=== PATIENT | female | born 1955 | race Caucasian/White ===

== ENCOUNTER 2017-05-06 08:07 | Observation (INO) | payer OTHER ==
[2017-05-06] VITALS (20 sets, daily range): BP systolic 117–159; BP diastolic 62–97; PULSE 62–74; RESP 15–19; Ht 160 cm; Wt 80.0 kg
[~2017-05-06] VITALS: Ht 160 cm; Wt 80.0 kg
[~2017-05-06 08:07] MED LIST: SEVOFLURANE 15 MIN ONE
[2017-05-06 09:30] LABS: BASOPHILS % 0.5 % (0.0-2.0); EOSINOPHILS # 0.2 10^3/ul (0.0-0.5); EOSINOPHILS % 2.9 % (0.0-7.0); HEMATOCRIT 41.2 % (37.0-47.0); HEMOGLOBIN 13.2 g/dl (12.0-16.0); LYMPHOCYTES # 2.4 10^3/ul (0.8-2.9); LYMPHOCYTES % 32.9 % (15.0-51.0); MEAN CORPUSCULAR HEMOGLOBIN 29.7 pg (29.0-33.0); MEAN CORPUSCULAR VOLUME 92.8 fl (82.0-101.0); MEAN PLATELET VOLUME 9.3 fl (7.4-10.4); MONOCYTE # 0.5 10^3/ul (0.3-0.9); MONOCYTES % 6.7 % (0.0-11.0); NEUTROPHILS % 56.7 % (39.0-77.0); PLATELET COUNT 332 10^3/UL (140-415); RED BLOOD COUNT 4.44 10^6/ul (4.20-5.40); WHITE BLOOD COUNT 7.3 10^3/ul (4.8-10.8)
--- NOTE | 2017-05-06 09:44 | RADRPT ---
PROCEDURE: XR Chest. CLINICAL INDICATION: Preoperative TECHNIQUE: Single frontal view of the chest was obtained COMPARISON: None FINDINGS: The heart and mediastinum are within normal limits. There is mild elevation of the right diaphragm. The lungs are clear. There is no pleural effusion or pneumothorax. RPTAT: AA IMPRESSION: No acute disease. .Bobby Da Silva MD, MD Date Time Electronically viewed and signed by .Bobby Da Silva MD, on 05/06/2017 09:44 .S/
[2017-05-06 09:51] LABS: INR 0.82; PROTIME 11.3 Sec (12.2-14.2); PT RATIO 0.9
[2017-05-06 09:52] LABS: PARTIAL THROMBOPLASTIN TIME 29.6 Sec (25.0-35.0)
[2017-05-06] MEDS ORDERED: CEFAZOLIN 2 GM/50 ML (PMX) 50 ML IVPB SCH (10:00)
[2017-05-06] MEDS ORDERED: SOD CHLORIDE 0.9% 1,000 ML IV SCH (10:00)
[2017-05-06 10:11] LABS: ALBUMIN 4.1 g/dl (3.3-4.9); ALBUMIN/GLOBULIN RATIO 1.24; BILIRUBIN,INDIRECT 0.2 mg/dl (0-1.1); BILIRUBIN,TOTAL 0.2 mg/dl (0.2-1.3); TOTAL PROTEIN 7.4 g/dl (6.1-8.1)
[2017-05-06 10:19] LABS: CALCIUM 9.3 mg/dl (8.4-10.2); CREATININE 0.66 mg/dl (0.44-1.00); POTASSIUM 3.8 mmol/L (3.5-5.1)
[2017-05-06] MEDS ORDERED: METOCLOPRAMIDE 10 MG INJ ONE (10:53)
[2017-05-06] MEDS ORDERED: SUCCINYLCHOLINE CHLORIDE 100 MG/5 ML SYG IV ONE (10:53)
[2017-05-06] MEDS ORDERED: FENTAnyl 50 MCG/ML VIAL ONE (10:53)
[2017-05-06] MEDS ORDERED: ONDANSETRON 4 MG INJ ONE (10:53)
[2017-05-06] MEDS ORDERED: ROCURONIUM 50 MG INJ ONE (10:53)
[2017-05-06] MEDS ORDERED: CEFAZOLIN 1 GM INJ ONE (10:53)
[2017-05-06] MEDS ORDERED: PROPOFOL 20 ML ONE (10:53)
[2017-05-06] MEDS ORDERED: MEPERIDINE 25 MG INJ IV PRN (12:00)
[2017-05-06] MEDS ORDERED: HYDROmorphONE (0.2 MG/ML) 10ML SYG IV PRN ×3 (12:00)
[2017-05-06] MEDS ORDERED: FENTAnyl 50 MCG/ML VIAL IV PRN ×2 (12:00)
[2017-05-06] MEDS ORDERED: ONDANSETRON 4 MG INJ IV PRN ×2 (12:00→13:00)
--- NOTE | 2017-05-06 12:39 | SIPON ---
Date/Time of Note Date/Time of Note DATE: 05/06/17 TIME: 12:36 Operative Report Preoperative Diagnosis Invasive cancer left breast Postoperative Diagnosis Same Operation/Procedure Performed Left modified radical mastectomy Surgeon: THOMAS MORELOS MD wellness assistant: AUGUST ZAVALETA MD Anesthesia Type: general Estimated Blood Loss: 10 - 50 ml's Transfusion Required: no Specimens Left breast and axillary contents Grafts/Implants: none Complications: no THOMAS MORELOS MD May 06, 2017 12:39
--- NOTE | 2017-05-06 12:56 | OPR ---
DATE OF OPERATION: 05/06/2017 PREOPERATIVE DIAGNOSIS: Invasive cancer, left breast. POSTOPERATIVE DIAGNOSIS: Invasive cancer, left breast. OPERATION PERFORMED: Left modified radical mastectomy. ANESTHESIA: General. ANESTHESIOLOGIST: Dr. Nikko Carreno. SURGEON: Dr. Diaz. RIDING INSTRUCTOR: Dr. Ruiz. INDICATIONS FOR PROCEDURE: Patient is a 62-year-old female, who underwent screening mammography, was found to have suspicious lesion in her left breast. Subsequent biopsy revealed a moderately differentiated invasive cancer. However, the patient had had a pertinent past medical history of a previous left breast cancer treated in 2004 with both chemotherapy and radiation. Therefore, she was not a candidate for breast conservation. She was counseled as to the need for modified radical mastectomy. She consented and was scheduled for surgery. OPERATIVE PROCEDURE: Patient was brought to the operating theater, placed under general endotracheal tube anesthesia. The left breast and axillary region were prepped and draped in the usual sterile fashion. A planned elliptical incision was made widely around the nipple-areolar complex, including a significant portion of the skin overlying the breast. The incision was carried out with 15 blade scalpel. Subcutaneous tissue was dissected with cautery. Allis-Hamilton clamps were then used to elevate the skin edges and sequential skin flaps were created using cautery, first superiorly to the clavicle, then medially to the sternal border, inferiorly to the inframammary fold and then laterally until the latissimus dorsi muscle was identified throughout its course. Mastectomy then took place from medial to lateral using cautery at the border of the pectoralis major muscle. The pectoralis minor muscle was identified. The clavipectoral fascia was incised. There was significant scar tissue consistent with previous surgery. With blunt dissection along the chest wall, the long thoracic nerve was kept out of harm's way. More superiorly, the axillary vein and thoracodorsal neurovascular bundles were kept out of harm's way. Node-bearing tissue between the 2 nerves was then harvested using the LigaSure device. Final connective tissue attachments to the latissimus dorsi muscle were then transected with cautery. Specimen was removed, oriented, and sent for permanent pathologic analysis. The wound was irrigated. Minimal bleeding was controlled with cautery. Two #10 flat Alejandro-Suazo drains were then brought through the left mid axillary line. One was cut to size and laid within the axilla. The other was cut to size and laid over the pectorals major muscle. Both drains were secured in place with 2- 0 nylon suture in the standard fashion. The skin incision was then reapproximated with skin veda. The patient tolerated procedure well. The estimated blood loss was approximately 40 mL. There were no complications and the patient was transported in stable condition to the recovery room. Dictated By: Ernie Diaz MD /nam/ho /Document#: [id number]
[2017-05-06] MEDS ORDERED: ACETAMINOPHEN 1000MG/100ML IV 100 ML IVPB PRN (13:00)
[2017-05-06] MEDS ORDERED: morphine 2 MG INJ IV PRN (13:00)
[2017-05-06] MEDS: D5W-0.45 NACL + KCL 20 MEQ 1,000 ML IV SCH (15:29)
[2017-05-06] MEDS ORDERED: OXYCODONE/ACETAMINOPHEN (5/325) TAB PO PRN (18:00)
[2017-05-06] MEDS ORDERED: ACETAMINOPHEN 500 MG TAB PO PRN (18:30)
--- NOTE | 2017-05-06 20:26 | HP ---
DATE OF ADMISSION: 05/06/2017 CHIEF COMPLAINT: The patient is a 64-year-old female with history of left-sided breast cancer, status post lumpectomy, chemotherapy, and radiation therapy that was back in 2004. The patient subsequently recently underwent screening mammography and was found to have suspicious lesion of left breast and subsequent biopsy revealed moderately differentiated invasive cancer. The patient was brought in the hospital today and underwent left modified radical mastectomy. The patient does have postoperative significant postoperative pain and is being admitted for further evaluation. The patient denies history of shortness of breath, no history of leg edema, no history of abdominal pain, no history of fever or chills, no history of headache, dizziness, syncope, no history of dysuria or hematuria. REVIEW OF SYSTEMS: The rest of the review of systems is unremarkable. PAST SURGICAL HISTORY: As stated above. ALLERGIES: NONE. SOCIAL HISTORY: No smoking. No alcohol. Patient's grandmother had ovarian cancer. MEDICATIONS: Prior to admission, none. PHYSICAL EXAMINATION: GENERAL: Patient is conscious, awake, alert. VITAL SIGNS: Temperature 98.8, pulse 68, respiration 18, blood pressure 149/73, O2 sat 97 on room air. HEENT: Normal. Oropharynx clear. NECK: Supple. No thyromegaly. CHEST: Fairly clear. CARDIOVASCULAR: Normal. No murmur. ABDOMEN: Soft, nontender. Bowel sounds present. EXTREMITIES: No leg edema. NEUROLOGIC: Patient is awake, alert, with no gross focal deficits. IMPRESSION: Recurrent left breast cancer with history of surgery in the past and also chemotherapy and radiation back in 2004 with recent recurrence, and now the patient underwent left modified radical mastectomy. PLAN: Patient admitted to medical floor. Patient started on clear liquid diet an gradually advance as tolerated. Patient will be given IV fluids and SCD for DVT prophylaxis. The patient will be started on Tylenol, Percocet and IV morphine for mild, moderate, and severe pain. If the patient continues to do well, she will be discharged home tomorrow. Plan of care discussed with the patient's family. Dictated By: Parish Kessler MD /nam/elo /Document#: [id number]
[2017-05-07 02:00] VITALS: BP 115/62; RESP 18
[2017-05-07] MEDS: D5W-0.45 NACL + KCL 20 MEQ 1,000 ML IV SCH ×3 (02:01→12:39)
[2017-05-07 06:00] VITALS: BP 112/82; PULSE 68; RESP 18
[2017-05-07 08:00] VITALS: BP 132/74; RESP 18
[2017-05-07 12:03] VITALS: BP 122/75; PULSE 74; RESP 16
[2017-05-07 14:34] VITALS: BP 111/63; RESP 16
[2017-05-07] MEDS ORDERED: ACET1TAB40 PO (16:58)
--- NOTE | 2017-05-07 22:10 | PN ---
DATE: 05/07/2017 SUBJECTIVE: No complaints. OBJECTIVE: VITAL SIGNS: Stable. No fever. GENERAL: No nausea, no vomiting. Two Alejandro-Suazo drains in place, drained totally 150 cc since operation. It is a serosanguineous fluid color. CHEST: The dressing around the chest wall is not too tight. The dressing is intact. ASSESSMENT: This is a 62-year-old female, who had cancer of the left breast, which was operated on with modified radical mastectomy with axillary dissection yesterday. This is the 2nd time that she is getting cancer in this breast. Postoperatively she has done fine, she is stable, the wound is clean, dressing is intact, Alejandro-Suazo is draining serosanguineous. PLAN: Patient is going to be discharged today with pain medication and the nurses are going to teach the patient how to take care of the WIN drains to record them. The patient to call Dr. Diaz' office on Wednesday for followup appointment. Dictated By: Tr Galindo MD /nam/elo /Document#: [id number] LUIGI
--- NOTE | 2017-05-08 07:24 | DS ---
Date/Time of Note Date/Time of Note DATE: 05/08/17 TIME: 07:23 Discharge Summary Admission/Discharge Info Admit Date/Time May 06, 2017 at 12:41 Discharge Date/Time May 07, 2017 at 17:40 Patient Condition: Stable Hx of Present Illness The patient is a 64-year-old female with history of left-sided breast cancer, status post lumpectomy, chemotherapy, and radiation therapy that was back in 2004. The patient subsequently recently underwent screening mammography and was found to have suspicious lesion of left breast and subsequent biopsy revealed moderately differentiated invasive cancer. The patient was brought in the hospital today and underwent left modified radical mastectomy. The patient does have postoperative significant postoperative pain and is being admitted for further evaluation. The patient denies history of shortness of breath, no history of leg edema, no history of abdominal pain, no history of fever or chills, no history of headache, dizziness, syncope, no history of dysuria or hematuria. Hospital Course Recurrent left breast cancer with history of surgery in the past and also chemotherapy and radiation back in 2004 with recent recurrence, and now the patient underwent left modified radical mastectomy. PLAN: Patient admitted to medical floor. Patient started on clear liquid diet an gradually advance as tolerated. Patient will be given IV fluids and SCD for DVT prophylaxis. The patient will be started on Tylenol, Percocet and IV morphine for mild, moderate, and severe pain. If the patient continues to do well, she will be discharged home tomorrow. Home Meds Active Scripts Acetaminophen with Codeine (Acetaminophen-Cod #3 Tablet) 1 Each Tablet, 1 TAB PO Q6H for PAIN, #20 TAB Prov:JAMES FERRER 05/07/17 Follow-up Plan f/up with Dr Diaz next week. Primary Care Provider [facility] JAMES FERRER May 08, 2017 07:24
--- NOTE | 2017-05-08 14:54 | RADRPT ---
Vent Rate: 66 bpm RR Interval: 0 msec [place] Interval: 230 msec QRS Duration: 86 msec QT Interval: 430 msec QTC Interval: 450 msec P-R-T [place]: 57 - -17 - 25 degrees Sinus rhythm with 1st degree AV block Otherwise normal ECG No previous tracing available for comparison Electronically Signed By: Yang De Leon [id number]
[2017-05-14] MEDS ORDERED: METOCLOPRAMIDE 10 MG INJ ONE (10:19)
[2017-05-14] MEDS ORDERED: PROPOFOL 20 ML ONE (10:19)
[2017-05-14] MEDS ORDERED: ONDANSETRON 4 MG INJ ONE (10:19)
[2017-05-14] MEDS ORDERED: FENTAnyl 50 MCG/ML VIAL ONE (10:19)
[2017-05-14] MEDS ORDERED: CEFAZOLIN 1 GM INJ ONE (10:38)
[2017-05-14] MEDS ORDERED: KETOROLAC 30 MG INJ ONE (11:37)
== END 2017-05-07 17:40 | disposition home or self-care (01) ==
LOC: SDS 08:07 → PP2 12:41 → SDS 20:34
PROVIDERS: ADMIT Surgery Surgical Oncology; ATTEND Surgery Surgical Oncology
DX: C50.912 Malignant neoplasm of unspecified site of left female breast (principal); Z17.0 Estrogen receptor positive status [ER+]; Z92.3 Personal history of irradiation; Z92.21 Personal history of antineoplastic chemotherapy
CPT/HCPCS: 19307; 71010; 80053; 85025; 85610; 85730; 88307; 93005; J0690; J2405; J2765; J3010; J3480; Z7500; Z7512; Z7610; G0378; J7999

== ENCOUNTER 2017-05-14 07:18 | Day surgery (SDC) | payer OTHER ==
[2017-05-14] VITALS (11 sets, daily range): BP systolic 107–118; BP diastolic 59–68; PULSE 68–85; RESP 12–18; Ht 157.5 cm; Wt 79.0 kg
[~2017-05-14] VITALS: Ht 157.5 cm; Wt 79.0 kg
[~2017-05-14 07:18] MED LIST changes: +ACET1TAB40 PO; -SEVOFLURANE 15 MIN ONE
--- NOTE | 2017-05-14 08:54 | ERA ---
ER Documentation Chief Complaint Date/Time DATE: 05/14/17 TIME: 08:52 Chief Complaint Patient here for a wound check lt breast HPI This is a 62-year-old female who is status post left breast mastectomy by Dr. Wagner who had her sutures removed yesterday presents with wound dehiscence. The patient states that she woke up this morning with an open wound to her left chest wall. She denies any pain, fevers or chills. She denies any drainage or discharge. She is Citizen [place]-speaking and an jig worker was used. ROS All systems reviewed and are negative except as per history of present illness. Medications Home Meds Active Scripts Acetaminophen with Codeine (Acetaminophen-Cod #3 Tablet) 1 Each Tablet, 1 TAB PO Q6H for PAIN, #20 TAB Prov:NABILJAMES 05/07/17 Allergies Allergies: Coded Allergies: No Known Allergy (Unverified , 05/14/17) PMhx/Soc History of Surgery: Yes (LEFT BREAST SX FOR CA,RT LUNG SX,MOUTH SX,HODA,C- SECTIONX2) Anesthesia Reaction: No Hx Neurological Disorder: No Hx Respiratory Disorders: No Hx Cardiac Disorders: No Hx Psychiatric Problems: No Hx Miscellaneous Medical Probl: No Hx Alcohol Use: No Hx Substance Use: No Hx Tobacco Use: No Smoking Status: Never smoker FmHx Family History: No diabetes Physical Exam Vitals Vital Signs Date Time Temp Pulse Resp B/P Pulse Ox O2 Delivery O2 Flow Rate FiO2 05/14/17 07:20 98.3 79 20 129/68 98 Physical Exam General: Well developed, well nourished, no acute distress Head: Normocephalic, atraumatic. Eyes: Pupils equally reactive, EOM intact ENT: Moist mucous membranes Neck: Supple, no lymphadenopathy Respiratory: Lungs clear bilaterally, no distress Cardiovascular: RRR, no murmurs, rubs, or gallops Abdominal: Soft, non-tender, non-distended, no peritoneal signs : Deferred MSK: No edema, no unilateral swelling, 5/5 strength Neurologic: Alert and oriented, moving all extremities, normal speech, no focal weakness, no cerebellar signs Skin: The left chest wall wound is open and gaping approximately 8 cm to the more medial aspect of the surgical wound. Subcutaneous tissue is visualized without evidence of drainage or discharge, no foreign body. Psych: Normal mood Procedures/MDM The patient has clinical signs and symptoms consistent with left chest wall wound dehiscence. The patient has no evidence of infection no evidence of foreign body. She is resting comfortably. I spoke to Dr. Diaz. He will take the patient to the operating room for washout and closure. He requested IV, no labs required. The patient was informed using a ferry operator. A consent was prepped for Dr. Diaz but not signed, he will formally consent prior to procedure. Departure Diagnosis: Primary Impression: Wound dehiscence Condition: Stable [place] MD May 14, 2017 08:54
[2017-05-14] MEDS ORDERED: POLYMYXIN/BACITRACIN 1L IRRIG ONE (10:48)
[2017-05-14] MEDS ORDERED: LABETALOL HCL 20MG INJ IV PRN (11:00)
[2017-05-14] MEDS ORDERED: hydrALAzine 20 MG INJ IV PRN (11:00)
[2017-05-14] MEDS ORDERED: MEPERIDINE 25 MG INJ IV PRN (11:00)
[2017-05-14] MEDS ORDERED: FENTAnyl 50 MCG/ML VIAL IV PRN ×2 (11:00)
[2017-05-14] MEDS ORDERED: VANCOMYCIN 1 GM (PMX) 250 ML ONE (11:09)
--- NOTE | 2017-05-14 12:22 | OPR ---
DATE OF OPERATION: 05/14/2017 PREOPERATIVE DIAGNOSIS: Left chest wall wound dehiscence. POSTOPERATIVE DIAGNOSIS: Left chest wall wound dehiscence. PROCEDURES: Washout and repair of left chest wall wound dehiscence. ANESTHESIA: General. ANESTHESIOLOGIST: Nelida Nick M.D. SURGEON: Ernie Diaz MD WOMEN'S SOCCER COACH: Shelley Desouza MD INDICATIONS FOR PROCEDURE: The patient is a 62-year-old female, who I had previously treated for recurrent left breast cancer with left modified radical mastectomy. She was doing well and had her drains and veda removed. She stated that when she was sleeping and rolled over in her bed. She felt a tearing of her skin. She presented to the emergency room with findings consistent with wound dehiscence. She was counseled as to the need of for washout of the wound and reapproximation. She consented and was scheduled for surgery. OPERATIVE PROCEDURE: The patient was brought to the operating theater, placed under general anesthesia. The left anterior thorax was prepped and draped in usual sterile fashion. The skin edges of the dehiscence were then elevated and the wound cavity was explored to ensure there was no underlying abscess. It was then copiously irrigated with both Betadine and hydrogen peroxide. Decision was made to replace a number 10-Thai Alejandro-Suazo drain and was brought through the left mid axillary line, cut to size and laid within the wound cavity. It was secured in place with 2-0 nylon suture in the standard fashion. The skin was then freshened by debriding some of what appeared to be non viable tissue and then the skin was reapproximated with 2- 0 nylon sutures in vertical mattress fashion. The patient tolerated procedure well. ESTIMATED BLOOD LOSS: 10 mL. COMPLICATIONS: There were no complications. DISPOSITION: The patient was transported in stable condition to the recovery room. Dictated By: Ernie Diaz MD /nam/jac /Document#: [id number]
== END 2017-05-14 13:25 | disposition home or self-care (01) ==
LOC: FTE 07:18 → SDS 09:49
PROVIDERS: ATTEND Surgery Surgical Oncology
DX: T81.30XA Disruption of wound, unspecified, initial encounter (principal); Y83.8 Other surgical procedures as the cause of abnormal reaction of the patient, or of later complication, without mention of misadventure at the time of the procedure; Y92.89 Other specified places as the place of occurrence of the external cause
CPT/HCPCS: 13160; J0690; J1885; J2405; J2765; J3010; J3370; Z7502; Z7512; Z7610

== ENCOUNTER 2017-06-03 11:47 | Day surgery (SDC) | payer OTHER ==
[2017-06-03] VITALS (7 sets, daily range): BP systolic 101–122; BP diastolic 62–73; PULSE 56–66; RESP 11–20; Ht 160 cm; Wt 81.2 kg
[~2017-06-03] VITALS: Ht 160 cm; Wt 81.2 kg
[~2017-06-03 11:47] MED LIST changes: +ATROPINE 1 MG/10 ML SYRINGE IV PRN; +DIPHENHYDRAMINE 50 MG INJ IV PRN; +EPHEDrine SULFATE 50 MG/5 ML SYG IV PRN; +FENTAnyl 50 MCG/ML VIAL IV PRN; +GLYCOPYRROLATE 0.4 MG INJ ONE; +HYDROmorphONE (0.2 MG/ML) 10ML SYG IV PRN; +LABETALOL HCL 20MG INJ IV PRN; +MEPERIDINE 25 MG INJ IV PRN; +MIDAZOLAM 1 MG/ML 2 ML INJ IV PRN; +NEOSTIGMINE 3 MG/3 ML SYRINGE ONE; +ONDANSETRON 4 MG INJ IV PRN; +OXYCODONE/ACETAMINOPHEN (5/325) TAB PO PRN; +ROCURONIUM 50 MG INJ ONE; +hydrALAzine 20 MG INJ IV PRN; +morphine (1 MG/ML) 10ML SYRINGE IV PRN
[2017-06-03 13:27] LABS: BASOPHILS % 0.4 % (0.0-2.0); EOSINOPHILS # 0.2 10^3/ul (0.0-0.5); EOSINOPHILS % 2.9 % (0.0-7.0); HEMATOCRIT 38.5 % (37.0-47.0); HEMOGLOBIN 12.3 g/dl (12.0-16.0); LYMPHOCYTES # 2.5 10^3/ul (0.8-2.9); LYMPHOCYTES % 33.7 % (15.0-51.0); MEAN CORPUSCULAR HEMOGLOBIN 29.5 pg (29.0-33.0); MEAN CORPUSCULAR HGB CONC 31.9 g/dl (32.0-37.0); MEAN CORPUSCULAR VOLUME 92.3 fl (82.0-101.0); MEAN PLATELET VOLUME 9.1 fl (7.4-10.4); MONOCYTE # 0.6 10^3/ul (0.3-0.9); MONOCYTES % 7.7 % (0.0-11.0); NEUTROPHIL # 4.2 10^3/ul (1.6-7.5); PLATELET COUNT 326 10^3/UL (140-415); RED BLOOD COUNT 4.17 10^6/ul (4.20-5.40); RED CELL DISTRIBUTION WIDTH 12.9 % (11.5-14.5); WHITE BLOOD COUNT 7.5 10^3/ul (4.8-10.8)
[2017-06-03] MEDS ORDERED: CEFAZOLIN 2 GM/50 ML (PMX) 50 ML IVPB SCH (13:30)
[2017-06-03] MEDS ORDERED: SOD CHLORIDE 0.9% 1,000 ML IV SCH (13:30)
--- NOTE | 2017-06-03 13:43 | RADRPT ---
PROCEDURE: XR Chest. CLINICAL INDICATION: Preop TECHNIQUE: Single frontal view of the chest was obtained COMPARISON: None FINDINGS: No pleural effusion or pneumothorax. No consolidation. Top normal cardiomediastinal silhouette. Mildly elevated right hemidiaphragm. No acute osseous abnormality. Surgical clips project over the left axilla. IMPRESSION: No acute cardiopulmonary disease. RPTAT: EE Tony Godinez Physician Date Time Electronically viewed and signed by Tony Godinez Physician on 06/03/2017 13:42 /
[2017-06-03 13:50] LABS: INR 0.86; PROTIME 11.7 Sec (12.2-14.2); PT RATIO 0.9
[2017-06-03 13:51] LABS: PARTIAL THROMBOPLASTIN TIME 29.5 Sec (25.0-35.0)
[2017-06-03 13:54] LABS: ALBUMIN 3.8 g/dl (3.3-4.9); ALBUMIN/GLOBULIN RATIO 1.18; BILIRUBIN,INDIRECT 0.3 mg/dl (0-1.1); BILIRUBIN,TOTAL 0.3 mg/dl (0.2-1.3)
[2017-06-03 13:56] LABS: CALCIUM 8.8 mg/dl (8.4-10.2); CREATININE 0.65 mg/dl (0.44-1.00)
[2017-06-03] MEDS ORDERED: FENTAnyl 50 MCG/ML VIAL ONE (15:39)
[2017-06-03] MEDS ORDERED: PROPOFOL 20 ML ONE (15:40)
[2017-06-03] MEDS ORDERED: LIDOCAINE 100 MG SYRINGE ONE (15:40)
[2017-06-03] MEDS ORDERED: CEFAZOLIN 1 GM INJ ONE (15:52)
--- NOTE | 2017-06-04 16:33 | RADRPT ---
Vent Rate: 61 bpm RR Interval: 0 msec [place] Interval: 238 msec QRS Duration: 84 msec QT Interval: 428 msec QTC Interval: 430 msec P-R-T [place]: 55 - -2 - 36 degrees Sinus rhythm with 1st degree AV block Otherwise normal ECG Electronically Signed By: Cody Olmstead [id number]
--- NOTE | 2017-06-04 18:12 | OPR ---
DATE OF OPERATION: 06/03/2017 PREOPERATIVE DIAGNOSIS: Left chest wall seroma. POSTOPERATIVE DIAGNOSIS: Left chest wall seroma. OPERATION PERFORMED: Incision and drainage of left chest wall seroma. ANESTHESIA: General. ANESTHESIOLOGIST: Dr. Mejia. SURGEON: Ernie Diaz MD GANG KNIFE FISH CHOPPER: None. INDICATIONS FOR PROCEDURE: Patient is a pleasant, approximately 62-year-old female, who I treated for left breast cancer. She developed a large seroma several weeks after her surgery. It was not resolving and appeared to be possibly becoming infected, therefore, she was counseled as to the benefit of the open incision and drainage. She consented and was scheduled for surgery. OPERATIVE PROCEDURE: Patient was brought to the operating theater, placed under general anesthesia. The left chest wall was prepped and draped in usual sterile fashion. Approximately 3 cm incision was made laterally over the region where the seroma had accumulated. Subcutaneous tissue was dissected with cautery. The seroma cavity was entered and at least 150 mL of clear seroma fluid were evacuated with suction. Minimal bleeding was controlled with cautery. A 10 flat Alejandro-Suazo drain was then brought through the incision and laid within the wound cavity. It was secured in place with 2-0 nylon sutures in the standard fashion and a sterile dressing was applied. Patient tolerated the procedure well. Estimated blood loss 10 cc. There were no complications. The patient was transported in stable condition to the recovery room. Dictated By: Ernie Diaz MD /nam/elo /Document#: [id number]
== END 2017-06-03 18:15 | disposition home or self-care (01) ==
LOC: SUR 11:47 → SDS 11:47 → SUR 18:15
PROVIDERS: ATTEND Surgery Surgical Oncology
DX: L76.34 Postprocedural seroma of skin and subcutaneous tissue following other procedure (principal); Y83.8 Other surgical procedures as the cause of abnormal reaction of the patient, or of later complication, without mention of misadventure at the time of the procedure; Z85.3 Personal history of malignant neoplasm of breast; I10 Essential (primary) hypertension; E11.9 Type 2 diabetes mellitus without complications; F32.9 Major depressive disorder, single episode, unspecified
CPT/HCPCS: 10140; 71010; 80053; 85025; 85610; 85730; 93005; J0690; J2710; J3010; Z7512; Z7610; J2001

== ENCOUNTER 2017-08-16 07:53 | Inpatient (IN) | payer OTHER ==
[2017-08-16] VITALS (26 sets, daily range): BP systolic 119–161; BP diastolic 66–90; PULSE 50–97; RESP 12–20; Ht 160 cm; Wt 83.3 kg
[~2017-08-16] VITALS: Ht 160 cm; Wt 83.3 kg
[~2017-08-16 07:53] MED LIST changes: -ACET1TAB40 PO; -ATROPINE 1 MG/10 ML SYRINGE IV PRN; -DIPHENHYDRAMINE 50 MG INJ IV PRN; -EPHEDrine SULFATE 50 MG/5 ML SYG IV PRN; -FENTAnyl 50 MCG/ML VIAL IV PRN; -GLYCOPYRROLATE 0.4 MG INJ ONE; -HYDROmorphONE (0.2 MG/ML) 10ML SYG IV PRN; -LABETALOL HCL 20MG INJ IV PRN; +LIDOCAINE 2% (SDV) 5 ML INJ ONE; -MEPERIDINE 25 MG INJ IV PRN; -MIDAZOLAM 1 MG/ML 2 ML INJ IV PRN; -NEOSTIGMINE 3 MG/3 ML SYRINGE ONE; -ONDANSETRON 4 MG INJ IV PRN; -OXYCODONE/ACETAMINOPHEN (5/325) TAB PO PRN; -ROCURONIUM 50 MG INJ ONE; -hydrALAzine 20 MG INJ IV PRN; -morphine (1 MG/ML) 10ML SYRINGE IV PRN
--- NOTE | 2017-08-16 09:55 | RADRPT ---
PROCEDURE: XR Chest. CLINICAL INDICATION: Preoperative evaluation TECHNIQUE: XR CHEST AP PORTABLE COMPARISON: None available. FINDINGS: The lungs are clear. No focal opacification is seen. No pneumothorax or pleural effusion is seen. The cardiomediastinal silhouette is unremarkable. The osseous structures are grossly unremarkable. IMPRESSION: No evidence of acute cardiopulmonary disease. RPTAT: JJ .Jb Ellison MD, MD Date Time Electronically viewed and signed by .Jb Ellison MD, on 08/16/2017 09:55 .A/
[2017-08-16] MEDS ORDERED: FENTAnyl 50 MCG/ML VIAL ONE ×2 (10:17→12:13)
[2017-08-16 10:26] LABS: BASOPHIL # 0.1 10^3/ul (0.0-0.1); BASOPHILS % 0.7 % (0.0-2.0); EOSINOPHILS # 0.5 10^3/ul (0.0-0.5); EOSINOPHILS % 7.4 % (0.0-7.0); HEMATOCRIT 42.5 % (37.0-47.0); HEMOGLOBIN 13.9 g/dl (12.0-16.0); LYMPHOCYTES # 2.4 10^3/ul (0.8-2.9); LYMPHOCYTES % 34.4 % (15.0-51.0); MEAN CORPUSCULAR HEMOGLOBIN 29.7 pg (29.0-33.0); MEAN CORPUSCULAR HGB CONC 32.7 g/dl (32.0-37.0); MEAN CORPUSCULAR VOLUME 90.8 fl (82.0-101.0); MEAN PLATELET VOLUME 9.4 fl (7.4-10.4); MONOCYTE # 0.4 10^3/ul (0.3-0.9); MONOCYTES % 5.9 % (0.0-11.0); NEUTROPHIL # 3.6 10^3/ul (1.6-7.5); NEUTROPHILS % 51.3 % (39.0-77.0); PLATELET COUNT 365 10^3/UL (140-415); RED BLOOD COUNT 4.68 10^6/ul (4.20-5.40); WHITE BLOOD COUNT 7.1 10^3/ul (4.8-10.8)
[2017-08-16] MEDS ORDERED: DIPHENHYDRAMINE 50 MG INJ IV PRN (10:30)
[2017-08-16] MEDS ORDERED: MEPERIDINE 25 MG INJ IV PRN (10:30)
[2017-08-16] MEDS ORDERED: KETOROLAC 30 MG INJ IV PRN (10:30)
[2017-08-16] MEDS ORDERED: HYDROmorphONE (0.2 MG/ML) 10ML SYG IV PRN ×2 (10:30)
[2017-08-16] MEDS ORDERED: CEFAZOLIN 2 GM/50 ML (PMX) 50 ML IVPB ONE (10:30)
[2017-08-16] MEDS ORDERED: hydrALAzine 20 MG INJ IV PRN (10:30)
[2017-08-16] MEDS ORDERED: LABETALOL HCL 20MG INJ IV PRN (10:30)
[2017-08-16] MEDS ORDERED: MIDAZOLAM 1 MG/ML 2 ML INJ IV PRN (10:30)
[2017-08-16] MEDS ORDERED: SOD CHLORIDE 0.9% 1,000 ML IV ONE (10:30)
[2017-08-16] MEDS ORDERED: FENTAnyl 50 MCG/ML VIAL IV PRN ×3 (10:30)
[2017-08-16] MEDS ORDERED: ALBUTEROL 0.083% (NEB) 2.5 MG/3 ML AMP HHN PRN (10:30)
[2017-08-16] MEDS ORDERED: METOCLOPRAMIDE 10 MG INJ IV PRN (10:30)
[2017-08-16] MEDS ORDERED: EPHEDrine SULFATE 50 MG/5 ML SYG IV PRN (10:30)
[2017-08-16] MEDS ORDERED: OXYCODONE/ACETAMINOPHEN (5/325) TAB PO PRN ×2 (10:30)
[2017-08-16] MEDS ORDERED: ONDANSETRON 4 MG INJ IV PRN ×2 (10:30→12:30)
[2017-08-16 10:46] LABS: ALBUMIN 4.2 g/dl (3.3-4.9); ALBUMIN/GLOBULIN RATIO 1.2; BILIRUBIN,INDIRECT 0.3 mg/dl (0-1.1); BILIRUBIN,TOTAL 0.3 mg/dl (0.2-1.3); INR 0.81; PROTIME 11.2 Sec (11.9-14.9); PT RATIO 0.9; TOTAL PROTEIN 7.7 g/dl (6.1-8.1)
[2017-08-16 10:47] LABS: PARTIAL THROMBOPLASTIN TIME 30.3 Sec (25.0-35.0)
[2017-08-16 10:55] LABS: CALCIUM 9.7 mg/dl (8.4-10.2); CREATININE 0.7 mg/dl (0.44-1.00); POTASSIUM 4.5 mmol/L (3.5-5.1)
[2017-08-16] MEDS ORDERED: PHENYLephrine (100 MCG/ML) 5ML SYG ONE (11:35)
[2017-08-16] MEDS ORDERED: PROPOFOL 100 ML ONE (11:35)
[2017-08-16] MEDS ORDERED: ROCURONIUM 50 MG INJ ONE (11:36)
[2017-08-16] MEDS ORDERED: CEFAZOLIN 1 GM INJ ONE (11:38)
[2017-08-16] MEDS ORDERED: ACETAMINOPHEN 1000MG/100ML IV 100 ML ONE (11:38)
[2017-08-16] MEDS ORDERED: DEXAMETHASONE 4 MG/ML 1 ML INJ ONE (12:16)
[2017-08-16] MEDS ORDERED: ONDANSETRON 4 MG INJ ONE (12:17)
--- NOTE | 2017-08-16 12:17 | SIPON ---
Date/Time of Note Date/Time of Note DATE: 08/16/17 TIME: 12:16 Operative Report Preoperative Diagnosis History of left breast cancer need for right prophylactic mastectomy Postoperative Diagnosis Same Operation/Procedure Performed Right mastectomy Surgeon see signature line assistant clinical nurse manager Dr Galindo Anesthesia: general Estimated blood loss: 10 - 50 ml's Transfusion Required none Specimen Right breast Grafts/Implants none Complications none THOMAS MORELOS MD Aug 16, 2017 12:17
[2017-08-16] MEDS ORDERED: morphine 2 MG INJ IV PRN (12:30)
--- NOTE | 2017-08-16 12:59 | OPR ---
DATE OF OPERATION: 08/16/2017 PREOPERATIVE DIAGNOSIS: History of left breast cancer, need for right prophylactic mastectomy. POSTOPERATIVE DIAGNOSIS: History of left breast cancer, need for right prophylactic mastectomy. PROCEDURE: Right mastectomy. ANESTHESIA: General. ANESTHESIOLOGIST: Dr. Sutotn. SURGEON: Ernie Diaz MD MANAGER ECONOMIC: Dr. Tr Galindo. INDICATIONS FOR PROCEDURE: The patient is a 62-year-old female. She was diagnosed with breast canc er in 2004 on the left side. At that time, she underwent breast conservation surgery and radiation. She developed a recurrence approximately 6 months ago and I treated her for a recurrent left breas t cancer with left mastectomy. Subsequently, she developed significant back pain due to the asymmet ry as she had very large breasts. She also was concern over the risk for breast cancer on the right side. Therefore, she requested a right mastectomy. She consented and was scheduled for surgery. DESCRIPTION OF PROCEDURE: The patient was brought to the operating theater, placed under general an esthesia. The right breast and axillary region was prepped and draped in usual sterile fashion. Pl anned elliptical incision was demarcated with marking pen including the nipple areolar complex and a dditional skin overlying the breast. It was carried out with 15 blade scalpel. Subcutaneous tissue was dissected with cautery. The skin edges were then elevated with Allis Beryl clamps and skin fla ps were created using cautery in a sequential fashion, first superiorly to the clavicle, then medial ly to the sternal border, inferiorly to the inframammary fold and laterally until the latissimus aniya si muscle was identified throughout its course. Mastectomy then took place from medial to lateral u sing cautery. At the border of the pectoralis major muscle, the pectoralis minor muscle was identif ied. Additional tail of the breast was resected using cautery. Specimen was transected, oriented, and sent for permanent pathologic analysis. The wound was irrigated. Minimal bleeding was controll ed with cautery. Two #10 flat Alejandro-Suazo drains were then brought through the right mid axillary line, one was laid over the pectoralis major muscle, the other was cut to size and laid within the axilla. Both drains were secured in place with 2-0 nylon sutures in standard fashion. The skin was reapproximated with skin veda. The patient tolerated the procedure well. The estimated blood l oss was 50 mL. There were no complications and the patient was transported in stable condition to [facility] recovery room where circumferential compression dressing was applied. Dictated By: ERNIE RENNER/SAV Conf#: [id number] DID#: [id number]
[2017-08-16] MEDS: HYDROmorphONE (0.2 MG/ML) 10ML SYG IV PRN ×2 (13:06→13:14)
[2017-08-16] MEDS: D5W-0.45 NACL + KCL 20 MEQ 1,000 ML IV SCH ×2 (14:10→21:26)
[2017-08-16] MEDS: ACETAMINOPHEN 1000MG/100ML IV 100 ML IVPB PRN (19:03)
--- NOTE | 2017-08-16 20:57 | HP ---
DATE OF ADMISSION: 08/16/2017 HISTORY OF PRESENT ILLNESS: The patient is a 62-year-old female known to me from previous admission. The patient was diagnosed with left breast cancer in 2004, and underwent radiation and c hemotherapy. The patient was evaluated by Dr. Diaz for recurrent breast cancer of the left breast, and underwent left modified radical mastectomy in April 2017. The patient is currently on oral ch emotherapy agents which were stopped 1 week ago. The patient developed significant back pain due to asymmetry since patient had large breasts, and patient requested right prophylactic mastectomy. Th e patient was brought to the hospital and underwent right prophylactic mastectomy by Dr. Diaz. Pos toperatively, the patient experienced a moderate pain, and she was admitted for further evaluation a nd management. PAST MEDICAL HISTORY: Patient denies any history of cardiac disease. Denies history of diabetes. PAST SURGICAL HISTORY: Stated in HPI, status post laparoscopic cholecystectomy in the past. FAMILY HISTORY: The patient's grandmother had ovarian cancer. SOCIAL HISTORY: Patient denies any alcohol use. Denies any tobacco use. Denies any illicit drug u se. Patient lives at home with family. ALLERGIES: NO KNOWN ALLERGIES. MEDICATIONS: The patient takes Tylenol p.r.n. for pain. REVIEW OF SYSTEMS: A 12-point review of systems is negative unless what is mentioned in HPI. PHYSICAL ASSESSMENT: GENERAL: Well-developed, well-nourished female in no acute distress. HEENT: Head is atraumatic, normocephalic. Pupils equal, round, reactive to light and accommodation . Oral mucosa is pink and moist. NECK: Supple. No cervical lymphadenopathy. No thyromegaly. CHEST: Status post surgery with right axillary JPs x2. LUNGS: Clear bilaterally. There are no rhonchi, wheezes, rales noted. CARDIOVASCULAR: Normal S1, S2. No murmurs, gallops, clicks, rubs noted. ABDOMEN: Round, soft, nondistended, nontender. Bowel sounds present. There is no guarding, no jonn ound tenderness. EXTREMITIES: No edema, clubbing, cyanosis. Pulses equal bilaterally 2+. SKIN: There is no rash, petechiae noted. NEUROLOGICAL: The patient is awake, alert and oriented x4. No focal deficits noted. MUSCULOSKELETAL: Motor strength 5/5 in all extremities. LABORATORY DATA: On admission, CBC: White blood cells 7.1, hemoglobin 13.9, hematocrit 42.5, plate lets 365. Chemistry: Sodium is 144, potassium 4.5, chloride 105, carbon dioxide 28, anion gap 16, BUN 11, creatinine 0.7, glucose 105. AST is 36, ALT is 66, alkaline phosphate is 110. ASSESSMENT AND PLAN: 1. History of left breast cancer and significant back pain due to asymmetry, status post right prop hylactic mastectomy by Dr. Diaz on 08/16/2017. 2. Status post left modified radical mastectomy for recurrent cancer in April 2017. 3. We are going to continue Zofran p.r.n. for nausea, and Tylenol and morphine p.r.n. for pain. Co ntinue incentive spirometer. Sequential compression device for deep venous thrombosis prophylaxis. Further recommendations based on clinical course. Plan of care discussed with Dr. Martin. Dictated By: JAMES FERRER AUTO GLASS WORKER for LARISA MARTIN MD SR/NTS Conf#: [id number] DID#: [id number] CC: THOMAS DIAZ MD;*EndCC*
[2017-08-17] MEDS: ACETAMINOPHEN 1000MG/100ML IV 100 ML IVPB PRN (01:02)
[2017-08-17 01:23] VITALS: BP 145/68; RESP 18
[2017-08-17] MEDS: D5W-0.45 NACL + KCL 20 MEQ 1,000 ML IV SCH ×2 (04:55→12:17)
[2017-08-17 07:21] VITALS: BP 122/67; RESP 20
[2017-08-17] MEDS ORDERED: ACET500C5 PO (13:44)
--- NOTE | 2017-08-17 14:39 | RADRPT ---
Vent Rate: 71 bpm RR Interval: 0 msec MN Interval: 224 msec QRS Duration: 86 msec QT Interval: 410 msec QTC Interval: 445 msec P-R-T [place]: 66 - 12 - 46 degrees Sinus rhythm with 1st degree AV block Otherwise normal ECG Electronically Signed By: Cody Olmstead [id number]
--- NOTE | 2017-08-17 14:40 | PN ---
DATE: 08/17/2017 A 62-year-old female status post right prophylactic mastectomy postoperative day #1. SUBJECTIVE: No complaint. OBJECTIVE: VITAL SIGNS: Stable, no fever. Heart rate is 95, respirations 20, blood pressure 122/67, saturatio n 96% on room air. LABORATORY DATA: No labs were done today, but before operation hemoglobin was 14, hematocrit 42. T wo Alejandro-Suazo drains in place that one of them has drained 80 mL in the past 24 hours and the oth er one 75 mL. The color of the drainage is serosanguineous. Dressing is intact. ASSESSMENT AND PLAN: A 62-year-old female who had cancer of the left breast was operated a few [place] hs ago. Now patient had been admitted for prophylactic right mastectomy, which was done yesterday, Wednesday. Today patient is quite stable. Wound is clean. Alejandro-Suazo drain is draining serosangui neous fluid. The patient can be discharged home with pain medication to be followed by Dr. Diaz in his office. The patient was instructed how to take care of the Alejandro-Suazo and how to measure it and how to record the drainage per day. Dictated By: AUGUST ZAVALETA MD PS/NTS Conf#: [id number] DID#: [id number]
--- NOTE | 2017-08-18 11:17 | DS ---
Date/Time of Note Date/Time of Note DATE: 08/18/17 TIME: 11:16 Discharge Summary Admission/Discharge Info Admit Date/Time Aug 16, 2017 at 07:53 Discharge Date/Time Aug 17, 2017 at 15:15 Patient Condition: Stable Hx of Present Illness The patient is a 62-year-old female known to me from previous admission. The patient was diagnosed with left breast cancer in 2004, and underwent radiation and chemotherapy. The patient was evaluated by Dr. Diaz for recurrent breast cancer of the left breast, and underwent left modified radical mastectomy in April 2017. The patient is currently on oral chemotherapy agents which were stopped 1 week ago. The patient developed significant back pain due to asymmetry since patient had large breasts, and patient requested right prophylactic mastectomy. The patient was brought to the hospital and underwent right prophylactic mastectomy by Dr. Diaz. Postoperatively, the patient experienced a moderate pain, and she was admitted for further evaluation and management. Hospital Course 1. History of left breast cancer and significant back pain due to asymmetry, status post right prophylactic mastectomy by Dr. Diaz on 08/16/2017. 2. Status post left modified radical mastectomy for recurrent cancer in April 2017. 3. We are going to continue Zofran p.r.n. for nausea, and Tylenol and morphine p.r.n. for pain. Continue incentive spirometer. Sequential compression device for deep venous thrombosis prophylaxis. Further recommendations based on clinical course. Plan of care discussed with Dr. Kessler. Home Meds Active Scripts Acetaminophen* (Tylophen*) 500 Mg Capsule, 500 MG PO Q6H Y for PAIN, #30 TAB Prov:JAMES FERRER 08/17/17 Follow-up Plan Follow-up with Dr. Diaz in 1 week Primary Care Provider [facility] Time spent on discharge: > 30 minutes JAMES FERRER Aug 18, 2017 11:17
== END 2017-08-17 15:15 | disposition home or self-care (01) | DRG 583 ==
LOC: REC 07:53 → MS1 13:52 → EDSTATUS 17:00
PROVIDERS: ADMIT Surgery Surgical Oncology; ATTEND Surgery Surgical Oncology
PROC: 0HBT0ZZ Excision of Right Breast, Open Approach (ICD-10-PCS; principal; 2017-08-16 10:30)
DX: N65.1 Disproportion of reconstructed breast (principal); C50.912 Malignant neoplasm of unspecified site of left female breast; M54.9 Dorsalgia, unspecified; Z85.3 Personal history of malignant neoplasm of breast; Z79.899 Other long term (current) drug therapy; Z92.3 Personal history of irradiation; Z90.12 Acquired absence of left breast and nipple
CPT/HCPCS: 71010; 80053; 85025; 85610; 85730; 88307; 93005; J0131; J0690; J1100; J1170; J2370; J2405; J3010; J3480; J7030

== ENCOUNTER 2017-08-23 09:08 | Inpatient (IN) | payer OTHER ==
[~2017-08-23] VITALS: Ht 162.6 cm; Wt 85.0 kg
[~2017-08-23 09:08] MED LIST changes: +ACET500C5 PO; -LIDOCAINE 2% (SDV) 5 ML INJ ONE
[2017-08-23 09:12] VITALS: Ht 162.6 cm; Wt 85.0 kg
[2017-08-23] MEDS ORDERED: ONDANSETRON 4 MG INJ IV STA (09:35)
[2017-08-23] MEDS ORDERED: HYDROmorphONE 1 MG/ML SYG IV STA (09:35)
[2017-08-23] MEDS ORDERED: SODIUM CHLORIDE 0.9% 1L BAG IV* STA (09:35)
[2017-08-23] MEDS ORDERED: ACETAMINOPHEN 325 MG TAB PO STA (09:35)
[2017-08-23] MEDS ORDERED: CEFEPIME 2GM/50 ML (PMX) 50 ML IVPB STA (09:35)
[2017-08-23] MEDS ORDERED: VANCOMYCIN 1 GM (PMX) 250 ML IVPB ONE (10:00)
[2017-08-23 10:28] LABS: ABNORMAL IP MESSAGE 1; BASOPHIL # 0.1 10^3/ul (0.0-0.1); BASOPHILS % 0.3 % (0.0-2.0); EOSINOPHILS # 0.2 10^3/ul (0.0-0.5); EOSINOPHILS % 0.6 % (0.0-7.0); HEMATOCRIT 44.9 % (37.0-47.0); HEMOGLOBIN 14.9 g/dl (12.0-16.0); LYMPHOCYTES # 1.3 10^3/ul (0.8-2.9); LYMPHOCYTES % 4.9 % (15.0-51.0); MEAN CORPUSCULAR HGB CONC 33.2 g/dl (32.0-37.0); MEAN CORPUSCULAR VOLUME 90.5 fl (82.0-101.0); MEAN PLATELET VOLUME 9.8 fl (7.4-10.4); MONOCYTE # 1.7 10^3/ul (0.3-0.9); MONOCYTES % 6.5 % (0.0-11.0); NEUTROPHIL # 23.2 10^3/ul (1.6-7.5); NEUTROPHILS % 87.1 % (39.0-77.0); PLATELET COUNT 426 10^3/UL (140-415); RED BLOOD COUNT 4.96 10^6/ul (4.20-5.40); RED CELL DISTRIBUTION WIDTH 13.1 % (11.5-14.5); WHITE BLOOD COUNT 26.6 10^3/ul (4.8-10.8)
[2017-08-23 10:37] LABS: POSITIVE DIFF @See below
[2017-08-23 10:46] LABS: ALANINE AMINOTRANSFERASE 61 IU/L (13-69); ALBUMIN 4.4 g/dl (3.3-4.9); ALBUMIN/GLOBULIN RATIO 1.22; ALKALINE PHOSPHATASE 115 IU/L (42-121); ANION GAP 17 (8-16); ASPARTATE AMINO TRANSFERASE 38 IU/L (15-46); BILIRUBIN,INDIRECT 0.5 mg/dl (0-1.1); BILIRUBIN,TOTAL 0.5 mg/dl (0.2-1.3); BLOOD UREA NITROGEN 10 mg/dl (7-20); CALCIUM 9.3 mg/dl (8.4-10.2); CARBON DIOXIDE 22 mmol/L (21-31); CHLORIDE 103 mmol/L (97-110); GLUCOSE 133 mg/dl (70-220); POTASSIUM 4.2 mmol/L (3.5-5.1); SODIUM 138 mmol/L (135-144)
[2017-08-23 11:01] LABS: TROPONIN-I < 0.012 ng/ml (0.00-0.12)
--- NOTE | 2017-08-23 11:03 | RADRPT ---
PROCEDURE: XR Chest. CLINICAL INDICATION: Fevers. Possible sepsis. Postop. TECHNIQUE: Single frontal chest x-ray. COMPARISON: 08/16/2017 FINDINGS: The lungs are clear. No focal opacification is seen. Minimal subtle blunting of the right costophre yumi angle with focal scarring is seen at this location. The cardiomediastinal silhouette is unremark able. The osseous structures are unremarkable. Surgical skin staple line along the right lateral c hest wall is identified. IMPRESSION: 1. There is no acute cardiopulmonary process. 2. Post surgical skin veda along the lateral chest wall. RPTAT: PP .Nikko Sterling MD, MD Date Time Electronically viewed and signed by .Nikko Sterling MD, on 08/23/2017 11:02 .B/
[2017-08-23 11:29] LABS: ANISOCYTOSIS 1+ (0-0); GIANT THROMBO% (M) 1 % (0-0); MICROCYTOSIS 1+ (0-0); MONOCYTES % (M) 6 % (0-11); PLATELET ESTIMATE NORMAL; POLYCHROMASIA 2+ (0-0); REACTIVE LYMPHOCYTES% (M) 2 % (0-0)
[2017-08-23 11:30] VITALS: TEMP 98.9
[2017-08-23 12:07] LABS: INR 0.88; PT RATIO 0.9
[2017-08-23 12:08] LABS: PARTIAL THROMBOPLASTIN TIME 27.6 Sec (25.0-35.0)
--- NOTE | 2017-08-23 12:27 | ERD ---
ER Documentation Chief Complaint Chief Complaint mastectomy right breast x 3 days ago, vomiting since last night HPI This is a 62-year-old female who is one-week status post right-sided mastectomy by Dr. Diaz. The patient presents with worsening right breast pain, swelling, redness, fever. The pain is 10 out of 10. She does have drainage from 2 WIN drains. She denies any pleuritic pain cough or shortness of breath, no abdominal pain dysuria urgency or frequency. ROS All systems reviewed and are negative except as per history of present illness. Medications Home Meds Active Scripts Acetaminophen* (Tylophen*) 500 Mg Capsule, 500 MG PO Q6H Y for PAIN, #30 TAB Prov:JAMES FERRER 08/17/17 Allergies Allergies: Coded Allergies: No Known Allergy (Unverified , 08/16/17) PMhx/Soc History of Surgery: Yes (LEFT SIDE MASTECTOMY, LUNG SX DUE TO CANCER, LAP CHOLY , RT MASTECTOMY) Anesthesia Reaction: No Hx Neurological Disorder: No Hx Respiratory Disorders: No Hx Cardiac Disorders: No Hx Psychiatric Problems: No Hx Miscellaneous Medical Probl: No Hx Alcohol Use: No Hx Substance Use: No Hx Tobacco Use: No Smoking Status: Never smoker FmHx Family History: No diabetes Physical Exam Vitals Vital Signs Date Time Temp Pulse Resp B/P Pulse Ox O2 Delivery O2 Flow Rate FiO2 08/23/17 11:30 98.9 118 20 141/86 100 Room Air 08/23/17 09:12 101.1 144 24 127/71 96 Physical Exam General: Significantly uncomfortable Head: Normocephalic, atraumatic. Eyes: Pupils equally reactive, EOM intact ENT: Moist mucous membranes Neck: Supple, no lymphadenopathy Respiratory: Lungs clear bilaterally, no distress Cardiovascular: RRR, no murmurs, rubs, or gallops Abdominal: Soft, non-tender, non-distended, no peritoneal signs : Deferred MSK: No edema, no unilateral swelling, 5/5 strength Neurologic: Alert and oriented, moving all extremities, normal speech, no focal weakness, no cerebellar signs Skin: The right breast mastectomy site is erythematous, bulging and warm and tender, WIN drains half filled with serosanguineous fluid. Psych: Normal mood Result Diagram: 08/23/17 1000 08/23/17 1000 Results 24 hrs Laboratory Tests Test 08/23/17 10:00 08/23/17 11:33 White Blood Count 26.610^3/ul Red Blood Count 4.9610^6/ul Hemoglobin 14.9g/dl Hematocrit 44.9% Mean Corpuscular Volume 90.5fl Mean Corpuscular Hemoglobin 30.0pg Mean Corpuscular Hemoglobin Concent 33.2g/dl Red Cell Distribution Width 13.1% Platelet Count 76009^3/UL Mean Platelet Volume 9.8fl Neutrophils % 87.1% Segmented Neutrophils % (Manual) 75% Band Neutrophils % (Manual) 16% Lymphocytes % 4.9% Lymphocytes % (Manual) 1% Reactive Lymphocytes % (Manual) 2% Monocytes % 6.5% Monocytes % (Manual) 6% Eosinophils % 0.6% Basophils % 0.3% Nucleated Red Blood Cells % 0.0/100WBC Neutrophils # 23.210^3/ul Neutrophils # (Manual) 21.110^3/ul Band Neutrophils # 4.210^3/ul Absolute Lymphocytes (Manual) 0.210^3/ul Lymphocytes # 1.310^3/ul Reactive Lymphocytes # 0.510^3/ul Monocytes # 1.710^3/ul Absolute Monocytes (Manual) 1.510^3/ul Eosinophils # 0.210^3/ul Basophils # 0.110^3/ul Nucleated Red Blood Cells # 0.010^3/ul Platelet Estimate NORMAL Giant Platelets 1% Polychromasia 2+ Anisocytosis 1+ Microcytosis 1+ Sodium Level 138mmol/L Potassium Level 4.2mmol/L Chloride Level 103mmol/L Carbon Dioxide Level 22mmol/L Anion Gap 17 Blood Urea Nitrogen 10mg/dl Creatinine 0.70mg/dl Glucose Level 133mg/dl Calcium Level 9.3mg/dl Total Bilirubin 0.5mg/dl Direct Bilirubin 0.00mg/dl Indirect Bilirubin 0.5mg/dl Aspartate Amino Transf (AST/SGOT) 38IU/L Alanine Aminotransferase (ALT/SGPT) 61IU/L Alkaline Phosphatase 115IU/L Troponin I < 0.012ng/ml Total Protein 8.0g/dl Albumin 4.4g/dl Globulin 3.60g/dl Albumin/Globulin Ratio 1.22 Prothrombin Time 12.0Sec Prothrombin Time Ratio 0.9 INR International Normalized Ratio 0.88 Activated Partial Thromboplast Time 27.6Sec Lactic Acid Level 2.4mmol/L Current Medications Medications (Trade) Dose Ordered Sig/Dieter Route PRN Reason Start Time Stop Time Status Last Admin Dose Admin Sodium Chloride (NS) 2,640 ml BOLUS OVER 2 HOURS STAT IV* 08/23/17 09:35 08/23/17 09:37 DC 08/23/17 10:00 Acetaminophen 650 mg 650 mg ONCE STAT PO 08/23/17 09:35 08/23/17 09:37 DC 08/23/17 10:03 Cefepime HCl 50 ml @ 100 mls/hr ONCE STAT IVPB 08/23/17 09:35 08/23/17 10:04 DC 08/23/17 10:55 Vancomycin HCl (Vancocin) 250 ml @ 125 mls/hr ONCE ONCE IVPB 08/23/17 10:00 08/23/17 11:59 DC 08/23/17 11:13 Hydromorphone HCl (Dilaudid) 1 mg ONCE STAT IV 08/23/17 09:35 08/23/17 09:37 DC 08/23/17 10:01 Ondansetron HCl (Zofran Inj) 4 mg ONCE STAT IV 08/23/17 09:35 08/23/17 09:37 DC 08/23/17 10:01 Ondansetron HCl (Zofran Inj) 4 mg BRIDGE ORDER PRN IV NAUSEA AND/OR VOMITING 08/23/17 12:30 08/24/17 12:29 Acetaminophen (Tylenol Tab) 650 mg ER BRIDGE PRN PO MILD PAIN/FEVER 08/23/17 12:30 08/24/17 12:29 Procedures/MDM EKG, MONITORS, & DIAGNOSTIC IMAGING: EKG: I reviewed and interpreted a 12-lead EKG. Rhythm: Sinus tachycardia Ectopy: None Intervals: No abnormalities ST segments: No elevations or depressions T waves: No contiguous inversions Chest x-ray: I reviewed and interpreted a 1 view of the chest Mediastinum: No enlargement Cardiac silhouette: No cardiomegaly Airspace: Clear lung [place] bilaterally without evidence of pneumothorax Bones: No evidence of fracture LAB INTERPRETATION: Leukocytosis of 26.6. Lactic acid elevation of 2.4, negative troponin MEDICAL DECISION MAKING: Patient has signs and symptoms very consistent with cellulitis and postoperative skin infection and wound infection. The patient is in significant discomfort. She meets SIRS criteria with concern for sepsis. ER COURSE: Cultures taken. Patient given IV fluids in the form of 30 cc/kg bolus of saline. The patient was given antipyretics, pain control medication. Broad- spectrum antibiotics in the form of vancomycin and cefepime. I spoke to Dr. Diaz who recommends admission and will consult on the case. The patient does have a lactic acid elevation but is hemodynamically stable. The patient's vital signs are improving. Her pain is well controlled. The patient is hemodynamically stable and does not require central line or pressors. I kept the patient and/or family informed of laboratory and diagnostic imaging results throughout the emergency room course. DISPOSITION PLAN: Medical surgical admission CONSULTATION: Accepting care team and consultations: I discussed the current laboratory data, diagnostic imaging and emergency care provided. Admitting team: Dr Kessler, has admitted in the past, requested by Dr Diaz Admitting team indication: Insurance directed Consulting services: Dr Diaz and Dr Galindo Sepsis Documentation: Patient's infectious symptoms have not stabilized and the patient is at risk of rapid decompensation. The patient will be admitted for careful hydration, antibiotic therapy, and infectious source control. SEVERE SEPSIS CRITERIA: Infectious source: Postoperative wound infection End organ damage indicated by: [Lactate > 2.0 mmol/L SEPSIS MANAGEMENT Time of recognition of severe sepsis/septic shock: Upon arrival 3 HOUR BUNDLE Blood cultures x 2 before broad-spectrum antibiotics: Yes 30 ml/kg NS bolus Completed Initial lactate 2.4 Repeat lactate pending repeat SEPTIC SHOCK ASSESSMENT: No lactic acid > 4.0 No persistent hypotension (SBP < 90 or 40 mmHg drop, MAP < 65) despite 30 mL/kg IV fluid bolus VOLUME REASSESSMENT FOR SEPTIC SHOCK: Reevaluation Time: 12:35 PM Temperature of 90.9 heart rate 118 blood pressure 141/86 respiratory rate 20 pulse ox 100% Heart slight tachycardia Lungs No crackles Skin Warm & dry Cap Refill Less than 2 seconds Peripheral pulses Radially present PERSISTENT HYPOTENSION TREATMENT: Comfort care No Central line Not Required Vasopressor started Not required I considered further perfusion assessment with CVP measurement, SCVO2, bedside ultrasound volume assessment, passive leg raise, trial of further fluid bolus. And proceeded with 30 ml/kg fluid bolus of NSS, broad spectrum antbiotics, and admission. CRITICAL CARE Critical care time 35 minutes Emergent fluid management while maintaining close respiratory support. Provision of immediate and broad-spectrum antibiotic therapy. Simultaneous assessment for possible sources in order to direct targeted therapy. Consideration for invasive and chemical support to prevent cardiopulmonary collapse. Critical care time is independent of procedures performed. Departure Diagnosis: Primary Impression: Postoperative wound infection Encounter type: initial encounter Qualified Code: T81.4XXA - Postoperative wound infection, initial encounter Additional Impression: Severe sepsis Condition: Stable [place] MD Aug 23, 2017 12:27
[2017-08-23] MEDS ORDERED: ACETAMINOPHEN 325 MG TAB PO PRN (12:30)
[2017-08-23] MEDS ORDERED: ONDANSETRON 4 MG INJ IV PRN ×3 (12:30→20:30)
[2017-08-23] MEDS ORDERED: IBUPROFEN 800 MG TAB PO ONE (14:30)
[2017-08-23 16:35] VITALS: BP 174/99; RESP 16
[2017-08-23] MEDS ORDERED: hydrALAzine 20 MG INJ IV PRN (17:00)
[2017-08-23] MEDS ORDERED: ZOLPIDEM 5 MG TAB PO PRN (17:00)
[2017-08-23] MEDS ORDERED: morphine LIQ (10 MG/5 ML) CUP PO PRN (17:00)
[2017-08-23] MEDS ORDERED: HYDROCODONE/APAP (5/325) TAB PO PRN (17:00)
[2017-08-23] MEDS ORDERED: VANCOMYCIN IV PER PHARMACY XX SCH (17:00)
[2017-08-23] MEDS: ENOXAPARIN 40 MG/0.4 ML SYG SC SCH (17:00)
[2017-08-23] MEDS: SOD CHLORIDE 0.45% 1,000 ML IV SCH (17:33)
[2017-08-23] MEDS: PIPER-TAZO 3.375 GM IV (PMX) 50 ML IVPB SCH ×2 (17:38→23:19)
[2017-08-23] MEDS: ACETAMINOPHEN 325 MG TAB PO PRN (17:39)
[2017-08-23 18:00] VITALS: BP 137/64; PULSE 114; RESP 18
[2017-08-23 19:54] VITALS: BP 106/56; RESP 18
--- NOTE | 2017-08-23 20:17 | CONS ---
DATE OF ADMISSION: 08/23/2017 DATE OF CONSULTATION: 08/23/2017 TYPE OF CONSULTATION: Surgical. REQUESTING PHYSICIAN: Dr. Martin's service. REASON FOR CONSULTATION: Right breast pain, swelling and redness, fever. HISTORY OF PRESENT ILLNESS: This is a 62-year-old female who apparently underwent right-sided mastectomy as a prophylactic to cancer because she had breast cancer on the left side for which she has undergone left breast mastectomy and axillary dissection about 3 months ago. The patient apparently was doing relatively fine up until last night when she started having pain and tenderness over the right breast and then fever. The pain got worse gradually, so much that she could not tolerate it anymore, so she referred to the emergency room today. In the emergency room, she was found to have a high temperature 101.1 and tachycardia, so investigation was performed and now the patient is being admitted with cellulitis and infection of the wound on the right side of the breast. PAST MEDICAL HISTORY: No diabetes, no hypertension. History of cancer of breast left side 3 years ago which was treated as a partial mastectomy, again recurrence 3 months ago and had complete radical mastectomy on the left side, history of laparoscopic cholecystectomy, history of operation on the right lung , probably a tumor, and history of right simple mastectomy about a week ago. Otherwise unremarkable. ALLERGIES: NOT KNOWN. MEDICATIONS: Tylenol at home. PHYSICAL EXAMINATION: GENERAL: The patient is alert, awake, oriented x3, mentation is good. VITAL SIGNS: Heart rate at this time is 118, regular, tachycardia. Temperature 98.9, respirations 20, blood pressure 141/86, saturation 100% on room air. HEAD AND NECK: Normocephalic. No thyroid enlargement. No adenopathy. No bruit. HEART: Regular, tachycardia. LUNGS: Clear. CHEST WALL: Left mastectomy site healed well. Right side: The incision line was intact, but there is evidence of cellulitis on the lateral aspect of the chest wall over the incision line and vicinity. There are 2 Alejandro-Suazo drains coming out of the inferior part of the incision. Both of them have drainage which is serosanguineous and serous fluid. I had to milk them down and following the milking of the contents, which was some blood clots, more fluid, which appeared yellowish and almost clear, was drained. The lower part of the incision, the 2nd drain which is supposed to be in the axilla, a slight amount of the distal part of the drain is out of the skin. ABDOMEN: Soft. LOWER EXTREMITIES: No calf tenderness. LABORATORIES: On admission at 10:00 a.m. today, WBC is 26,600 with 87% segmented. Hemoglobin 14.9, hematocrit 44.9. Coagulation: INR is 0.88 which is normal. Chemistry: Sodium normal, potassium is normal, BUN is 10, creatinine 0.70. Note was her lactic acid was 2.4 which is slightly elevated. IMAGING: A chest x-ray was done in the emergency room which the report states there is no acute cardiopulmonary process. Postsurgical skin veda along the lateral chest wall are seen. Apparently, in the emergency room, blood cultures were sent. I myself sent cultures from the drainage from the Alejandro-Suazo tubes. The patient has been started on antibiotics after blood culture was taken, including vancomycin 1 g IV stat and also cefepime 2 g IV stat. It should be mentioned that the patient is not in shock at this time. Capillary refill is good. IMPRESSION: 1. Status post right simple mastectomy 1 week ago. 2. Infection of the mastectomy site, cellulitis. 3. Systemic inflammatory response syndrome with 26,600 WBC, temperature 101.3 and lactic acid increased to 2.4. PLAN: The patient is to be admitted. IV hydration and IV antibiotics. Observation and further decision will be made according to the patient's response to the treatment. Dictated By: AUGUST ZAVALETA MD PS/NTS Conf#: [id number] DID#: [id number] CC: LARISA MARTIN MD;*EndCC* MTDD
[2017-08-23] MEDS: VANCOMYCIN 1 GM in NS 250 ML IVPB SCH (20:46)
[2017-08-23] MEDS: FAMOTIDINE 20 MG TAB PO SCH (23:18)
[2017-08-24 02:23] VITALS: BP 107/59; RESP 20
--- NOTE | 2017-08-24 04:42 | HP ---
DATE OF ADMISSION: 08/23/2017 HISTORY OF PRESENT ILLNESS: The patient is a 62-year-old female known to me from previous admission . The patient was diagnosed with left breast cancer in 2004. She underwent radiation and chemother apy at that time. The patient experienced recurrence of breast cancer of the left breast and underw ent left modified radical mastectomy in April of this year. The patient also on oral chemotherapy; however, the patient developed significant breast pain due to symmetry and the patient underwent a right prophylactic mastectomy on 08/16/2017 and was discharged home in stable condition; however, th e patient developed fever and worsening of the right breast pain with swelling and erythema. Patien t also experienced some nonbilious, nonbloody emesis. On admission to the emergency room, the patie nt had fever of 101.1. White blood cells were elevated at 26,600. The patient also noted to have e levated lactate to 2.4. The patient underwent a chest x-ray which was negative for any acute cardio pulmonary processes. The patient was given IV fluids and started on broad spectrum antibiotics and the patient is admitted for further evaluation and management. PAST SURGICAL HISTORY: Per HPI. The patient is status post laparoscopic cholecystectomy. PAST SURGICAL HISTORY: Status post bilateral mastectomy. FAMILY HISTORY: Negative for any history of breast or ovarian cancer. SOCIAL HISTORY: Patient lives at home with family. Patient denies any tobacco use, denies any alco hol use and illicit drugs. ALLERGIES: NO KNOWN ALLERGIES. HOME MEDICATIONS: Include: Tylenol p.r.n. for pain. REVIEW OF SYSTEMS: A 12-point review of systems negative unless what mentioned in the HPI. PHYSICAL ASSESSMENT: GENERAL: Well-developed, well-nourished female currently is awake, alert. VITAL SIGNS: Temperature is 100.0, pulse is 114, blood pressure 137/64, respiratory rate 18, oxygen saturation 96% on room air. HEENT: Head is atraumatic, normocephalic. Pupils equal, round, reactive to light. Oral mucosa is pink and moist. NECK: Supple, no cervical lymphadenopathy, no thyromegaly. LUNGS: Clear bilaterally. There are no rhonchi, wheezes. CARDIOVASCULAR: Normal S1, S2. No murmurs, rubs, clicks or rubs noted. CHEST: The patient is status post recent right mastectomy but with axillary JPs x2 with erythema, s welling of the surgical sites. ABDOMEN: Round, soft, nondistended, nontender. Bowel sounds present. No guarding, no rebound tend erness. EXTREMITIES: There is no edema, clubbing, cyanosis. Pulses equal bilaterally 2+. SKIN: noted. NEUROLOGIC: Patient is awake, alert and oriented x4. No focal deficits noted. Motor strength 5/5 in all extremities. LABORATORY DATA: On admission, CBC: White blood cells 26.6, hemoglobin 14.9, hematocrit 44.9, plat elet count 426. Chemistry: Sodium 138, potassium 4.2, chloride 103, carbon dioxide 22, anion gap 1 7, BUN 10, creatinine 0.77, glucose 133, calcium is 9.3. Troponin less than 0.012. ASSESSMENT AND PLAN: 1. Postoperative soft tissue infection. Will continue broad spectrum antibiotics. Continue IV flu ids. 2. Sepsis secondary to #1, postoperative soft tissue infection. 3. Status post right mastectomy on 08/16/[address] Diaz. Will obtain ID consultation from Dr. Massey. Will continue Tylenol and morphine p.r.n. for pain. Zofran p.r.n. for nausea. Lovenox for deep venous thrombosis prophylaxis and Pepcid for peptic ulce r disease prophylaxis. Further recommendations based on clinical course. Plan of care discussed [facility] Dr. Martin. Dictated By: JAMES FERRER WEB PORTAL DEVELOPER for LARISA MARTIN MD SR/NTS Conf#: [id number] DID#: [id number]
[2017-08-24] MEDS: PIPER-TAZO 3.375 GM IV (PMX) 50 ML IVPB SCH ×3 (05:02→18:31)
[2017-08-24] MEDS: SOD CHLORIDE 0.45% 1,000 ML IV SCH ×2 (05:44→19:04)
[2017-08-24 07:24] VITALS: BP 125/63; RESP 20
[2017-08-24] MEDS: ACETAMINOPHEN 325 MG TAB PO PRN ×2 (08:56→20:03)
[2017-08-24] MEDS: VANCOMYCIN 1 GM in NS 250 ML IVPB SCH ×2 (08:56→20:02)
[2017-08-24] MEDS: FAMOTIDINE 20 MG TAB PO SCH ×2 (08:56→20:03)
[2017-08-24] MEDS ORDERED: ENOXAPARIN 30 MG/0.3 ML SYG SC SCH (09:00)
[2017-08-24] MEDS: ENOXAPARIN 40 MG/0.4 ML SYG SC SCH (09:08)
[2017-08-24 13:54] VITALS: BP 125/59; RESP 20
[2017-08-24 15:07] LABS: BASOPHIL # 0.1 10^3/ul (0.0-0.1); BASOPHILS % 0.3 % (0.0-2.0); EOSINOPHILS # 0.3 10^3/ul (0.0-0.5); EOSINOPHILS % 1.7 % (0.0-7.0); HEMATOCRIT 36.7 % (37.0-47.0); HEMOGLOBIN 12.1 g/dl (12.0-16.0); LYMPHOCYTES # 1.7 10^3/ul (0.8-2.9); LYMPHOCYTES % 10.8 % (15.0-51.0); MEAN CORPUSCULAR HEMOGLOBIN 30.2 pg (29.0-33.0); MEAN CORPUSCULAR VOLUME 91.5 fl (82.0-101.0); MEAN PLATELET VOLUME 9.1 fl (7.4-10.4); MONOCYTE # 1.5 10^3/ul (0.3-0.9); MONOCYTES % 9.1 % (0.0-11.0); NEUTROPHIL # 12.6 10^3/ul (1.6-7.5); NEUTROPHILS % 77.8 % (39.0-77.0); PLATELET COUNT 343 10^3/UL (140-415); RED BLOOD COUNT 4.01 10^6/ul (4.20-5.40); RED CELL DISTRIBUTION WIDTH 13.2 % (11.5-14.5); WHITE BLOOD COUNT 16.2 10^3/ul (4.8-10.8)
[2017-08-24 15:36] LABS: ALBUMIN 2.8 g/dl (3.3-4.9); ALBUMIN/GLOBULIN RATIO 0.96; BILIRUBIN,INDIRECT 0.6 mg/dl (0-1.1); BILIRUBIN,TOTAL 0.6 mg/dl (0.2-1.3); CALCIUM 8.5 mg/dl (8.4-10.2); CREATININE 0.72 mg/dl (0.44-1.00); POTASSIUM 3.5 mmol/L (3.5-5.1); TOTAL PROTEIN 5.7 g/dl (6.1-8.1)
[2017-08-24] MEDS ORDERED: LIDOCAINE 1% (MPF) 5 ML VIAL SC ONE (16:00)
--- NOTE | 2017-08-24 17:09 | PN ---
DATE: 08/24/2017 ADMITTING DIAGNOSIS: Cellulitis of the postop incision site on the right side. SUBJECTIVE: Feels much better. No nausea, no vomiting, no headache. OBJECTIVE GENERAL: Awake, alert, oriented. VITAL SIGNS: Temperature maximum today 99.9, heart rate maximum 111, right now it is 71, respiratio ns 20, blood pressure 125/59, saturation 96% on room air. LABORATORY DATA: Apparently, patient has refused in the morning and now they have got it in the [facility] and the result is not available yet, but later last night, the lactic acid dropped to 2.1, wh ich is almost normal. PHYSICAL EXAMINATION: HEART: Regular. LUNGS: Clear. Chest wall right side cellulitis is decreasing. There is no more tenderness in the right lateral area where the drainage has been coming out. The drainage is serosanguineous, slightl y turbid. Within the past 24 hours, the drainage has been 80 mL #1, 140 mL #2, total 220 mL. CULTURE RESULTS: Blood culture has been negative so far. There is no report of the culture of the drainage from the wound that we sent in the emergency room yesterday. ASSESSMENT: A 62-year-old female status post right simple mastectomy, prophylactic, because of hist ory of cancer of the left breast. The patient had mastectomy about 8 days ago. Yesterday came to [facility] emergency room complaining of severe pain, tenderness, redness, swelling and chills and fever and was found to have an infection of the incision site. Temperature high, leukocytes 26,000. Culture was taken. The patient was started on 1 gram vancomycin and 2 grams of cefepime IV q. 24 hours. PLAN: We will continue with antibiotics. The patient is responding to the regimen of antibiotics. Dictated By: AUGUST ZAVALETA MD PS/NTS Conf#: [id number] DID#: [id number] CC: LARISA MARTIN MD;*EndCC*
--- NOTE | 2017-08-24 18:34 | PN ---
Date/Time of Note Date/Time of Note DATE: 08/24/17 TIME: 18:29 Assessment/Plan VTE Prophylaxis VTE Prophylaxis Intervention: SCD's Lines/Catheters IV [facility]ter [facility] (from [facility]): Peripheral IV Assessment/Plan Chief Complaint/Hosp Course Patient's continues to have low-grade fever and tachycardia however stated that she feels slightly better. Problems: Assessment/Plan - Postoperative soft tissue infection. Continue broad spectrum antibiotics. Continue IV fluids. - Sepsis secondary to #1, postoperative soft tissue infection. Dr. Massey is following in infection disease consultation. - Status post right mastectomy on 08/16/[address] Diaz. Further recommendations based on clinical course. Plan of care discussed with Dr. Kessler. Exam/Review of Systems Vital Signs Vitals Vital Signs Date Time Temp Pulse Resp B/P Pulse Ox O2 Delivery O2 Flow Rate FiO2 08/24/17 13:54 97.9 71 20 125/59 96 08/23/17 18:00 Room Air Intake and Output 08/23/17 08/23/17 08/24/17 15:00 23:00 07:00 Intake Total 250 ml 650 ml Balance 250 ml 650 ml Exam Constitutional: alert Head: normocephalic Eyes: nl conjunctiva Respiratory: clear to auscultation Cardiovascular: nl pulses Gastrointestinal: non-tender, soft Extremities: normal pulses ( S/p bilateral mastectomies) Results Result Diagram: 08/24/17 1438 08/24/17 1438 Results 24 hrs Laboratory Tests Test 08/23/17 20:33 08/24/17 14:38 Lactic Acid Level 2.1 H 1.5 White Blood Count 16.2 #H Red Blood Count 4.01 L Hemoglobin 12.1 Hematocrit 36.7 L Mean Corpuscular Volume 91.5 Mean Corpuscular Hemoglobin 30.2 Mean Corpuscular Hemoglobin Concent 33.0 Red Cell Distribution Width 13.2 Platelet Count 343 Mean Platelet Volume 9.1 Neutrophils % 77.8 H Lymphocytes % 10.8 L Monocytes % 9.1 Eosinophils % 1.7 Basophils % 0.3 Nucleated Red Blood Cells % 0.0 Neutrophils # 12.6 H Lymphocytes # 1.7 Monocytes # 1.5 H Eosinophils # 0.3 Basophils # 0.1 Nucleated Red Blood Cells # 0.0 Sodium Level 138 Potassium Level 3.5 Chloride Level 106 Carbon Dioxide Level 23 Anion Gap 13 Blood Urea Nitrogen 7 Creatinine 0.72 Glucose Level 135 Calcium Level 8.5 Total Bilirubin 0.6 Direct Bilirubin 0.00 Indirect Bilirubin 0.6 Aspartate Amino Transf (AST/SGOT) 25 Alanine Aminotransferase (ALT/SGPT) 49 Alkaline Phosphatase 80 Total Protein 5.7 #L Albumin 2.8 #L Globulin 2.90 Albumin/Globulin Ratio 0.96 Medications Medications Current Medications Morphine Sulfate (morphine) 6 mg Q4H PRN PO PAIN LEVEL 6-10; Start 08/23/17 at 17:00 Enoxaparin Sodium (Lovenox) 40 mg DAILY SC Last administered on 08/24/17 09: 08; Admin Dose 40 MG; Start 08/23/17 at 17:00 Zolpidem Tartrate 5 mg 5 mg HS PRN PO INSOMNIA; Start 08/23/17 at 17:00 Sodium Chloride (1/2 NS) 1,000 ml @ 75 mls/hr [id number] IV Last administered on 08/23/17 17:33; Admin Dose 75 MLS/HR; Start 08/23/17 at 17:00 Hydralazine HCl (Apresoline) 10 mg Q4H PRN IV ELEVATED BLOOD PRESSURE; Start 08/23/17 at 17:00 Acetaminophen (Tylenol Tab) 650 mg Q6H PRN PO PAIN AND OR ELEVATED TEMP Last administered on 08/24/17 08:56; Admin Dose 650 MG; Start 08/23/17 at 17:00 Acetaminophen/ Hydrocodone Bitart ([place] (5/325)) 1 tab Q6H PRN PO PAIN; Start 08/23/17 at 17:00 Ondansetron HCl 4 mg 4 mg Q6H PRN IV NAUSEA AND/OR VOMITING; Start 08/23/17 at 17:00 Piperacillin Sod/ Tazobactam Sod 50 ml @ 100 mls/hr Q6 IVPB Last administered on 08/24/17 12:00; Admin Dose 100 MLS/HR; Start 08/23/17 at 18:00 Vancomycin HCl (Vancocin) 250 ml @ 125 mls/hr Q12H IVPB Last administered on 08/24/17 08:56; Admin Dose 125 MLS/HR; Start 08/23/17 at 20:00 Famotidine (Pepcid) 20 mg Q12 PO Last administered on 12/12/17at 08:56; Admin Dose 20 MG; Start 08/23/17 at 21:00 Miscellaneous Information (*Rx Drug Level Order Reminder*) VANCO TROUGH @ 0, 700 ON ... ONCE ONCE XX ; Start 08/25/17 at 07:00; Stop 08/25/17 at 07:01 JAMES FERRER Aug 24, 2017 18:34
[2017-08-24 20:36] VITALS: BP 141/81; RESP 18
--- NOTE | 2017-08-25 | CONS ---
DATE OF ADMISSION: 08/23/2017 DATE OF CONSULTATION: 08/24/2017 TYPE OF CONSULTATION: Infectious disease. REASON FOR CONSULTATION: Antibiotic management. HISTORY OF PRESENT ILLNESS: Filomena Flores is a 62-year-old female who is admitted now status post laparoscopic cholecystectomy and is being seen for antibiotic management. Her past problems include history of left breast cancer in 2004, status post radiation and chemotherapy. She had recurrence of breast cancer in the left breast. She underwent a left modified radical mastectomy in April of 2017. The patient also is on oral chemotherapy. She developed significant breast pain and underwen t a right prophylactic mastectomy on 08/16/2017. She was discharged home in stable condition; [place], she then developed fever and worsening of the right breast pain with swelling and erythema. She also experienced some nonbilious, nonbloody emesis. She came in to the emergency room with tempera ture 101.1, white count of 26,600, hemoglobin and hematocrit was 14.9 and 44.9, platelet count 426,0 00, BUN and creatinine 10/0.77. She had an elevated lactate of 2.4. X-ray was negative for any car diopulmonary disease. PAST MEDICAL HISTORY: As outlined. PAST SURGICAL HISTORY: Status post laparoscopic cholecystectomy, status post bilateral mastectomy. FAMILY HISTORY: Noncontributory. SOCIAL HISTORY: She does not smoke, drink or abuse drugs. ALLERGIES: NONE TO PENICILLIN, SULFA OR FOODS. MEDICATIONS: Per chart. REVIEW OF SYSTEMS: As per HPI. PHYSICAL EXAMINATION: GENERAL: The patient is a well-developed, well-nourished female, alert, responsive, in no acute dis tress. VITAL SIGNS: Stable. T-max 101.1. SKIN: Without generalized rash. HEENT: Within normal limits. NECK: Supple. LYMPH NODES: None palpable. CHEST: Decreased breath sounds at the bases. HEART: Without murmur or gallop. THORAX: She is status post recent right mastectomy. She has WIN drains in the axilla x2 with erythe ma and swelling at the surgical sites. ABDOMEN: Soft, nontender, without organosplenomegaly or masses. EXTREMITIES: Without cyanosis, clubbing or edema. RECTAL AND GENITAL: Deferred. NEUROLOGIC: No focal neurological abnormality. IMPRESSION AND PLAN: The patient has a postoperative soft tissue infection. She was started on van comycin and Zosyn. Blood cultures so far are negative. She had some anaerobic cultures done as wel l and blood cultures. We can see if we can get some cultures of the drainage. I will dictate my fi ndings to Dr. Diaz, Dr. Martin, Dr. Galindo and nurse practitioner Kyle. Dictated By: SRUTHI MONTERO MD, JD/SAV Conf#: [id number] DID#: [id number] CC: LARISA MARTIN MD;*EndCC*
[2017-08-25] MEDS: PIPER-TAZO 3.375 GM IV (PMX) 50 ML IVPB SCH ×5 (00:20→23:22)
[2017-08-25 02:12] VITALS: BP 117/60; RESP 18
[2017-08-25 07:19] VITALS: BP 129/72; RESP 20
[2017-08-25 07:49] LABS: BASOPHIL # 0.1 10^3/ul (0.0-0.1); BASOPHILS % 0.4 % (0.0-2.0); EOSINOPHILS # 0.3 10^3/ul (0.0-0.5); EOSINOPHILS % 2.4 % (0.0-7.0); HEMATOCRIT 37.6 % (37.0-47.0); HEMOGLOBIN 12.2 g/dl (12.0-16.0); LYMPHOCYTES # 1.8 10^3/ul (0.8-2.9); LYMPHOCYTES % 13.1 % (15.0-51.0); MEAN CORPUSCULAR HEMOGLOBIN 29.8 pg (29.0-33.0); MEAN CORPUSCULAR HGB CONC 32.4 g/dl (32.0-37.0); MEAN CORPUSCULAR VOLUME 91.7 fl (82.0-101.0); MEAN PLATELET VOLUME 9.2 fl (7.4-10.4); MONOCYTE # 1.5 10^3/ul (0.3-0.9); MONOCYTES % 10.5 % (0.0-11.0); NEUTROPHIL # 10.2 10^3/ul (1.6-7.5); NEUTROPHILS % 73.1 % (39.0-77.0); PLATELET COUNT 357 10^3/UL (140-415); RED CELL DISTRIBUTION WIDTH 13.2 % (11.5-14.5)
[2017-08-25 07:57] LABS: CALCIUM 8.8 mg/dl (8.4-10.2); CREATININE 0.88 mg/dl (0.44-1.00); POTASSIUM 3.5 mmol/L (3.5-5.1)
[2017-08-25] MEDS: FAMOTIDINE 20 MG TAB PO SCH ×2 (08:34→20:11)
[2017-08-25] MEDS: VANCOMYCIN 1 GM in NS 250 ML IVPB SCH (08:35)
[2017-08-25] MEDS: ENOXAPARIN 40 MG/0.4 ML SYG SC SCH (08:40)
--- NOTE | 2017-08-25 13:23 | PN ---
Date/Time of Note Date/Time of Note DATE: 08/25/17 TIME: 13:20 Assessment/Plan VTE Prophylaxis VTE Prophylaxis Intervention: SCD's Lines/Catheters IV Catheter Type (from [facility]): Peripheral IV Assessment/Plan Chief Complaint/Hosp Course Patient stated that she feels better, white blood cells trending down. Assessment/Plan - Postoperative soft tissue infection. Continue broad spectrum antibiotics. Continue IV fluids. - Sepsis secondary to #1, postoperative soft tissue infection. Dr. Massey is following in infection disease consultation. - Status post right mastectomy on 08/16/[address] Diaz. Further recommendations based on clinical course. Plan of care discussed with Dr. Kessler. Problems: Exam/Review of Systems Vital Signs Vitals Vital Signs Date Time Temp Pulse Resp B/P Pulse Ox O2 Delivery O2 Flow Rate FiO2 08/25/17 07:19 98.4 100 20 129/72 95 08/23/17 18:00 Room Air Intake and Output 08/24/17 08/24/17 08/25/17 14:59 22:59 06:59 Intake Total 1350 ml 1440 ml 1262 ml Output Total 220 ml 67 ml 860 ml Balance 1130 ml 1373 ml 402 ml Exam Constitutional: alert Head: normocephalic Eyes: nl conjunctiva Respiratory: clear to auscultation Cardiovascular: nl pulses Gastrointestinal: non-tender, soft Extremities: normal pulses ( S/p bilateral mastectomies) Results Result Diagram: 08/25/17 0713 08/25/17 0713 Results 24 hrs Laboratory Tests Test 08/24/17 14:38 08/25/17 07:13 White Blood Count 16.2 #H 14.0 H Red Blood Count 4.01 L 4.10 L Hemoglobin 12.1 12.2 Hematocrit 36.7 L 37.6 Mean Corpuscular Volume 91.5 91.7 Mean Corpuscular Hemoglobin 30.2 29.8 Mean Corpuscular Hemoglobin Concent 33.0 32.4 Red Cell Distribution Width 13.2 13.2 Platelet Count 343 357 Mean Platelet Volume 9.1 9.2 Neutrophils % 77.8 H 73.1 Lymphocytes % 10.8 L 13.1 L Monocytes % 9.1 10.5 Eosinophils % 1.7 2.4 Basophils % 0.3 0.4 Nucleated Red Blood Cells % 0.0 0.0 Neutrophils # 12.6 H 10.2 H Lymphocytes # 1.7 1.8 Monocytes # 1.5 H 1.5 H Eosinophils # 0.3 0.3 Basophils # 0.1 0.1 Nucleated Red Blood Cells # 0.0 0.0 Sodium Level 138 143 Potassium Level 3.5 3.5 Chloride Level 106 108 Carbon Dioxide Level 23 25 Anion Gap 13 14 Blood Urea Nitrogen 7 7 Creatinine 0.72 0.88 Glucose Level 135 127 Lactic Acid Level 1.5 Calcium Level 8.5 8.8 Total Bilirubin 0.6 Direct Bilirubin 0.00 Indirect Bilirubin 0.6 Aspartate Amino Transf (AST/SGOT) 25 Alanine Aminotransferase (ALT/SGPT) 49 Alkaline Phosphatase 80 Total Protein 5.7 #L Albumin 2.8 #L Globulin 2.90 Albumin/Globulin Ratio 0.96 Vancomycin Level Trough 9.0 L Medications Medications Current Medications Morphine Sulfate (morphine) 6 mg Q4H PRN PO PAIN LEVEL 6-10; Start 08/23/17 at 17:00 Enoxaparin Sodium (Lovenox) 40 mg DAILY SC Last administered on 08/25/17 08: 40; Admin Dose 40 MG; Start 08/23/17 at 17:00 Zolpidem Tartrate 5 mg 5 mg HS PRN PO INSOMNIA; Start 08/23/17 at 17:00 Sodium Chloride (1/2 NS) 1,000 ml @ 75 mls/hr [id number] IV Last administered on 08/24/17 19:04; Admin Dose 75 MLS/HR; Start 08/23/17 at 17:00 Hydralazine HCl (Apresoline) 10 mg Q4H PRN IV ELEVATED BLOOD PRESSURE; Start 08/23/17 at 17:00 Acetaminophen (Tylenol Tab) 650 mg Q6H PRN PO PAIN AND OR ELEVATED TEMP Last administered on 08/24/17 20:03; Admin Dose 650 MG; Start 08/23/17 at 17:00 Acetaminophen/ Hydrocodone Bitart ([place] (5/325)) 1 tab Q6H PRN PO PAIN; Start 08/23/17 at 17:00 Ondansetron HCl 4 mg 4 mg Q6H PRN IV NAUSEA AND/OR VOMITING; Start 08/23/17 at 17:00 Piperacillin Sod/ Tazobactam Sod (Zosyn 3.375gm/ 50 ml (Pmx)) 50 ml @ 100 mls/ hr Q6 IVPB Last administered on 08/25/17 11:57; Admin Dose 100 MLS/HR; Start 08/23/17 at 18:00 Famotidine 20 mg 20 mg Q12 PO Last administered on 08/25/17 08:34; Admin Dose 20 MG; Start 08/23/17 at 21:00 Vancomycin HCl/ Sodium Chloride (Vancocin/NS) 250 ml @ 83.333 mls/ hr Q12H IVPB ; Start 08/25/17 at 20:00 JAMES FERRER Aug 25, 2017 13:23
--- NOTE | 2017-08-25 13:38 | PN ---
DATE: 08/25/2017 SUBJECTIVE: She feels better. OBJECTIVE GENERAL: Awake, alert, oriented x3. VITAL SIGNS: Temperature today 98.9, heart rate 110, respirations 18, blood pressure normal. Saturation 95% on room air. LABORATORY DATA: WBC dropped to 14,000 with 73% neutrophils, which is normal differential, absolute shift, leukocytosis. Hemoglobin and hematocrit stable. Chemistry: Sodium, potassium, BUN, creatinine normal today. Last lactic acid was 1.5 yesterday. HEART: Regular. LUNGS: Clear. ABDOMEN: Soft. CHEST WALL: There is still some erythema over the lateral part of the incision and slightly below that, but there is no tenderness, there is no gross abscess. The swelling and erythema and cellulitis has decreased much. Alejandro-Suazo drain is draining serosanguineous fluid and some fat particles. Total drainage last 24 hours, one of them was 225 mL, the other 55 mL. The cultures so far have been negative. PLAN: Continue current care with vancomycin and Zosyn IV antibiotics per recommendation of infectious disease and keep the Alejandro-Suazo drain in place. Dictated By: AUGUST SWAN/SAV Conf#: [id number] DID#: [id number] MTDTacho
[2017-08-25 14:14] VITALS: BP 118/57; RESP 20
[2017-08-25] MEDS: SOD CHLORIDE 0.45% 1,000 ML IV SCH ×2 (14:49→22:20)
[2017-08-25 19:36] VITALS: BP 139/63; RESP 18
[2017-08-25] MEDS: VANCOMYCIN 1.25 GM in SOD CHLORIDE 0.9% 250 ML IVPB SCH (20:11)
[2017-08-25] MEDS: GUAIFENESIN/DM 5ML CUP PO PRN (22:23)
[2017-08-25] MEDS: ACETAMINOPHEN 325 MG TAB PO PRN (23:32)
--- NOTE | 2017-08-25 23:51 | PN ---
DATE: 08/25/2017 INFECTIOUS DISEASE PROGRESS NOTE SUBJECTIVE: No acute events overnight. Patient is alert, feels good. Denies pain, discomfort. No fevers. LABORATORY DATA: WBC 14. No shift. No bands. BUN 7, creatinine 0.88. MICROBIOLOGY: Blood cultures negative. ANTIMICROBIALS: 1. Vancomycin. 2. Zosyn. PHYSICAL EXAMINATION: GENERAL: This is a well-developed, elderly woman who is alert in no distress. HEENT: Head atraumatic, normocephalic. Sclerae anicteric. Buccal mucosa pink. NECK: Supple. CHEST: Rise symmetrical. Breath sounds clear. On right breast, incision with veda intact and s ome erythema present, no drainage. There is a WIN. HEART: S1, S2. ABDOMEN: Soft. Bowel tones present. EXTREMITIES: Without cyanosis. ASSESSMENT: 1. Status post right-sided mastectomy as a prophylactic to cancer with cellulitis at the incision s ite. 2. Systemic inflammatory response syndrome secondary to above. 3. History of breast cancer status post left breast mastectomy with axillary dissection 3 months ag o. 4. History of laparoscopic cholecystectomy. PLAN: Patient remains stable. Surgery on case. We will continue her on current antibiotics. Awai t for clinical improvement. Dictated By: AJ MANCINI ASSOCIATE JAVA DEVELOPER for RSUTHI MONTERO MD NI/NTS Conf#: [id number] DID#: [id number] CC: LARISA MARTIN MD;*EndCC*
[2017-08-26 01:51] VITALS: BP 132/60; RESP 17
[2017-08-26] MEDS: PIPER-TAZO 3.375 GM IV (PMX) 50 ML IVPB SCH ×3 (05:35→17:31)
[2017-08-26 06:49] LABS: BASOPHIL # 0.1 10^3/ul (0.0-0.1); BASOPHILS % 0.4 % (0.0-2.0); EOSINOPHILS # 0.3 10^3/ul (0.0-0.5); HEMATOCRIT 35.4 % (37.0-47.0); HEMOGLOBIN 11.6 g/dl (12.0-16.0); LYMPHOCYTES # 2.1 10^3/ul (0.8-2.9); MEAN CORPUSCULAR HGB CONC 32.8 g/dl (32.0-37.0); MEAN CORPUSCULAR VOLUME 91.5 fl (82.0-101.0); MEAN PLATELET VOLUME 9.3 fl (7.4-10.4); MONOCYTES % 8.4 % (0.0-11.0); NEUTROPHIL # 7.7 10^3/ul (1.6-7.5); NEUTROPHILS % 68.5 % (39.0-77.0); PLATELET COUNT 367 10^3/UL (140-415); RED BLOOD COUNT 3.87 10^6/ul (4.20-5.40); RED CELL DISTRIBUTION WIDTH 13.2 % (11.5-14.5); WHITE BLOOD COUNT 11.3 10^3/ul (4.8-10.8)
[2017-08-26 07:00] VITALS: BP 137/66; RESP 18
[2017-08-26 08:20] LABS: CALCIUM 8.7 mg/dl (8.4-10.2); CREATININE 0.97 mg/dl (0.44-1.00); POTASSIUM 3.5 mmol/L (3.5-5.1)
[2017-08-26] MEDS: FAMOTIDINE 20 MG TAB PO SCH ×2 (09:15→20:20)
[2017-08-26] MEDS: SOD CHLORIDE 0.45% 1,000 ML IV SCH (09:15)
[2017-08-26] MEDS: VANCOMYCIN 1.25 GM in SOD CHLORIDE 0.9% 250 ML IVPB SCH ×2 (09:15→20:20)
[2017-08-26] MEDS: ENOXAPARIN 40 MG/0.4 ML SYG SC SCH (09:50)
[2017-08-26 14:00] VITALS: BP 140/63; RESP 18
--- NOTE | 2017-08-26 16:19 | PN ---
Date/Time of Note Date/Time of Note DATE: 08/26/17 TIME: 16:16 Assessment/Plan VTE Prophylaxis VTE Prophylaxis Intervention: SCD's Lines/Catheters [facility] Peripheral IV Assessment/Plan Chief Complaint/Hosp Course Patient with gradually decreasing leukocytosis, no fever. Assessment/Plan - Postoperative soft tissue infection. Continue broad spectrum antibiotics. Continue IV fluids. - Sepsis secondary to #1, postoperative soft tissue infection. Dr. Massey is following in infection disease consultation. - Status post right mastectomy on 08/16/[address] Diaz. - Protein calorie malnutrition, dietary consult. Further recommendations based on clinical course. Plan of care discussed with Dr. Kessler. Problems: Exam/Review of Systems Vital Signs Vitals Vital Signs Date Time Temp Pulse Resp B/P Pulse Ox O2 Delivery O2 Flow Rate FiO2 08/26/17 14:00 98.1 89 18 140/63 97 08/23/17 18:00 Room Air Intake and Output 08/25/17 08/25/17 08/26/17 15:00 23:00 07:00 Intake Total 738 ml 1655 ml 1995 ml Output Total 55 ml 50 ml Balance 738 ml 1600 ml 1945 ml Exam Constitutional: alert Respiratory: clear to auscultation Cardiovascular: nl pulses Gastrointestinal: non-tender, soft Extremities: normal pulses ( S/p bilateral mastectomies) Results Result Diagram: 08/26/17 0604 08/26/17 0604 Results 24 hrs Laboratory Tests Test 08/26/17 06:04 White Blood Count 11.3 H Red Blood Count 3.87 L Hemoglobin 11.6 L Hematocrit 35.4 L Mean Corpuscular Volume 91.5 Mean Corpuscular Hemoglobin 30.0 Mean Corpuscular Hemoglobin Concent 32.8 Red Cell Distribution Width 13.2 Platelet Count 367 Mean Platelet Volume 9.3 Neutrophils % 68.5 Lymphocytes % 19.0 Monocytes % 8.4 Eosinophils % 3.0 Basophils % 0.4 Nucleated Red Blood Cells % 0.0 Neutrophils # 7.7 H Lymphocytes # 2.1 Monocytes # 1.0 H Eosinophils # 0.3 Basophils # 0.1 Nucleated Red Blood Cells # 0.0 Sodium Level 146 H Potassium Level 3.5 Chloride Level 109 Carbon Dioxide Level 27 Anion Gap 14 Blood Urea Nitrogen 9 Creatinine 0.97 Glucose Level 110 Calcium Level 8.7 Medications Medications Current Medications Morphine Sulfate (morphine) 6 mg Q4H PRN PO PAIN LEVEL 6-10; Start 08/23/17 at 17:00 Enoxaparin Sodium (Lovenox) 40 mg DAILY SC Last administered on 08/26/17 09: 50; Admin Dose 40 MG; Start 08/23/17 at 17:00 Zolpidem Tartrate 5 mg 5 mg HS PRN PO INSOMNIA; Start 08/23/17 at 17:00 Sodium Chloride (1/2 NS) 1,000 ml @ 75 mls/hr [id number] IV Last administered on 08/26/17 09:15; Admin Dose 75 MLS/HR; Start 08/23/17 at 17:00 Hydralazine HCl (Apresoline) 10 mg Q4H PRN IV ELEVATED BLOOD PRESSURE; Start 08/23/17 at 17:00 Acetaminophen (Tylenol Tab) 650 mg Q6H PRN PO PAIN AND OR ELEVATED TEMP Last administered on 08/25/17 23:32; Admin Dose 650 MG; Start 08/23/17 at 17:00 Acetaminophen/ Hydrocodone Bitart ([place] (5/325)) 1 tab Q6H PRN PO PAIN; Start 08/23/17 at 17:00 Ondansetron HCl 4 mg 4 mg Q6H PRN IV NAUSEA AND/OR VOMITING; Start 08/23/17 at 17:00 Piperacillin Sod/ Tazobactam Sod (Zosyn 3.375gm/ 50 ml (Pmx)) 50 ml @ 100 mls/ hr Q6 IVPB Last administered on 08/26/17 12:28; Admin Dose 100 MLS/HR; Start 08/23/17 at 18:00 Famotidine 20 mg 20 mg Q12 PO Last administered on 08/26/17 09:15; Admin Dose 20 MG; Start 08/23/17 at 21:00 Vancomycin HCl/ Sodium Chloride (Vancocin/NS) 250 ml @ 83.333 mls/ hr Q12H IVPB Last administered on 08/26/17 09:15; Admin Dose 83.333 MLS/HR; Start at 20:00 Guaifenesin/ Dextromethorphan (Robitussin Dm Liquid Cup) 10 ml Q4H PRN PO COUGH Last administered on 12/13/17at 22:23; Admin Dose 10 ML; Start 08/25/17 at 21:00 Miscellaneous Information (*Rx Drug Level Order Reminder*) ONCE ONCE XX ; Start 08/27/17 at 07:00; Stop 08/27/17 at 07:01 JAMES FERRER Aug 26, 2017 16:19
[2017-08-26 20:01] VITALS: BP 133/63; RESP 18
--- NOTE | 2017-08-26 20:43 | PN ---
DATE: 08/26/2017 FOLLOWUP PROGRESS NOTE SUBJECTIVE: Is slightly concerned about firmness around the lateral aspect of the right chest wall in the vicinity of where the drains come out. No chills, no fever, no nausea, no vomiting. Overall, feels better than admission time. OBJECTIVE: GENERAL: Awake, alert, oriented x3. VITAL SIGNS: Today, maximum temperature 98.4, heart rate 89, respirations 18, blood pressure 140/63, saturation 97% on room air. LABORATORY DATA: Today, sodium 146, potassium normal, BUN and creatinine normal. Hematology: WBC dropped to 11,300, yesterday was 14,000, on admission was 26,000. Differential is 68% neutrophils. Alejandro-Suazo drains: #1 has drained 50 mL in past 24 hours. #2 has drained _55 total 105 mL. Drainage is serosanguineous with a lot of fat droplets in that. The culture that we sent in the emergency room from the content of the Alejandro-Suazo drains is not back yet, I am not sure if that was actually delivered to the lab or not. Today, I asked the nurse to send another culture from the Alejandro-Suazo #1. HEART: Regular. LUNGS: Clear. ABDOMEN: Soft. SKIN: Chest wall line of incision is clear. There is slight edema and slight erythema, mainly around the lateral aspect of the remaining of the chest wall where the Alejandro-Suazo drains are coming out. there is a slight amount of cellulitis, but minimal tenderness. ASSESSMENT AND PLAN: The patient is a 62-year-old female who is status post right simple mastectomy, prophylactic, about 10 days ago, presented to the emergency room with redness, swelling, pain, tenderness and fever, which was diagnosed with cellulitis of the incision line and postoperative wound, so the patient was admitted and started on antibiotics. She is now on vancomycin and Zosyn, and leukocyte count which was 26,000 on admission, now has dropped to 11, 300. PLAN: Continue antibiotics IV and further decision will be made according to the hospital course. Dictated By: AUGUST ZAVALETA MD PS/NTS Conf#: [id number] DID#: [id number] CC: LARISA MARTIN MD;*EndCC* MTDD
--- NOTE | 2017-08-26 21:42 | PN ---
DATE: 08/26/2017 INFECTIOUS DISEASE PROGRESS NOTE SUBJECTIVE: Patient is alert, complaining of pain at the right breast side and said that it is more swollen. She is in no distress, afebrile. LABORATORY DATA: WBC 11.3, no shift, no bands. BUN 9, creatinine 0.97. MICROBIOLOGY: Cultures remain negative. ANTIMICROBIALS: The patient is on: 1. Vancomycin. 2. Zosyn. PHYSICAL EXAMINATION: GENERAL: Well-developed, elderly woman who is alert, in no distress. HEENT: Head atraumatic, normocephalic. Sclerae anicteric. Buccal mucosa pink. NECK: Supple. CHEST: Rise symmetrical. Breath sounds clear. HEART: S1, S2. ABDOMEN: Soft. Bowel tones present. SKIN: With right breast incision clean, dry and intact. There is slight erythema and some firmness upon palpation. No drainage and no fluctuance. ASSESSMENT: 1. Systemic inflammatory response syndrome with resolving leukocytosis. 2. Status post right-sided mastectomy with cellulitis at the incision site, resolving. 3. History of breast cancer status post left breast lumpectomy with axillary dissection 3 months ag o. PLAN: The patient remains stable. White blood cell count tracing down. She is being followed by Tacho Galindo in surgical consultation. We will discuss with him current findings. Continue present ca re. Dictated By: AJ MANCINI LENS MOLDING EQUIPMENT OPERATOR for SRUTHI MONTERO MD NI/NTS Conf#: [id number] DID#: [id number] CC: LARISA MARTIN MD;*EndCC*
[2017-08-26] MEDS: GUAIFENESIN/DM 5ML CUP PO PRN (23:12)
[2017-08-27] MEDS: PIPER-TAZO 3.375 GM IV (PMX) 50 ML IVPB SCH ×5 (00:14→23:23)
[2017-08-27 02:27] VITALS: BP 143/63; RESP 18
[2017-08-27 08:11] VITALS: BP 126/64; RESP 18
[2017-08-27 08:22] LABS: BASOPHIL # 0.1 10^3/ul (0.0-0.1); BASOPHILS % 0.5 % (0.0-2.0); EOSINOPHILS # 0.4 10^3/ul (0.0-0.5); EOSINOPHILS % 3.5 % (0.0-7.0); HEMATOCRIT 38.3 % (37.0-47.0); HEMOGLOBIN 12.6 g/dl (12.0-16.0); LYMPHOCYTES # 2.1 10^3/ul (0.8-2.9); LYMPHOCYTES % 20.9 % (15.0-51.0); MEAN CORPUSCULAR HEMOGLOBIN 29.7 pg (29.0-33.0); MEAN CORPUSCULAR HGB CONC 32.9 g/dl (32.0-37.0); MEAN CORPUSCULAR VOLUME 90.3 fl (82.0-101.0); MEAN PLATELET VOLUME 8.8 fl (7.4-10.4); MONOCYTE # 0.9 10^3/ul (0.3-0.9); MONOCYTES % 8.8 % (0.0-11.0); NEUTROPHIL # 6.7 10^3/ul (1.6-7.5); NEUTROPHILS % 65.8 % (39.0-77.0); PLATELET COUNT 423 10^3/UL (140-415); RED BLOOD COUNT 4.24 10^6/ul (4.20-5.40); RED CELL DISTRIBUTION WIDTH 12.8 % (11.5-14.5); WHITE BLOOD COUNT 10.1 10^3/ul (4.8-10.8)
[2017-08-27 09:01] LABS: CALCIUM 9.2 mg/dl (8.4-10.2); CREATININE 0.91 mg/dl (0.44-1.00); POTASSIUM 3.5 mmol/L (3.5-5.1)
[2017-08-27] MEDS: ENOXAPARIN 40 MG/0.4 ML SYG SC SCH (09:11)
[2017-08-27] MEDS: FAMOTIDINE 20 MG TAB PO SCH ×2 (09:11→20:05)
[2017-08-27] MEDS: VANCOMYCIN 1.25 GM in SOD CHLORIDE 0.9% 250 ML IVPB SCH ×2 (09:12→20:05)
[2017-08-27] MEDS: SOD CHLORIDE 0.45% 1,000 ML IV SCH ×2 (11:40→17:37)
--- NOTE | 2017-08-27 14:19 | CONS ---
Date/Time of Note Date/Time of Note DATE: 08/27/17 TIME: 14:18 Assessment/Plan Assessment/Plan Chief Complaint/Hosp Course SUBJECTIVE: No acute events overnight. Patient is alert, feels good. Denies pain, discomfort. No fevers. MICROBIOLOGY: Blood cultures negative. ANTIMICROBIALS: 1. Vancomycin. 2. Zosyn. PHYSICAL EXAMINATION: GENERAL: This is a well-developed, elderly woman who is alert in no distress. HEENT: Head atraumatic, normocephalic. Sclerae anicteric. Buccal mucosa pink. NECK: Supple. CHEST: Rise symmetrical. Breath sounds clear. On right breast, incision with veda intact and some erythema present, no drainage. There is a WIN. HEART: S1, S2. ABDOMEN: Soft. Bowel tones present. EXTREMITIES: Without cyanosis. ASSESSMENT: 1. Status post right-sided mastectomy as a prophylactic to cancer with cellulitis at the incision site. 2. Systemic inflammatory response syndrome secondary to above. 3. History of breast cancer status post left breast mastectomy with axillary dissection 3 months ago. 4. History of laparoscopic cholecystectomy. PLAN: Patient remains stable. Wound cx growing St aureus, continue abx, f/u final cx, anticipate dc on PO abx. DW DR Galindo Problems: Consultation Date/Type/Reason Admit Date/Time Aug 23, 2017 at 12:02 Initial Consult Date Type of Consultation: ID Exam/Review of Systems Vital Signs Vitals Vital Signs Date Time Temp Pulse Resp B/P Pulse Ox O2 Delivery O2 Flow Rate FiO2 08/27/17 08:11 98.5 86 18 126/64 95 08/23/17 18:00 Room Air Intake and Output 08/26/17 08/26/17 08/27/17 15:00 23:00 07:00 Intake Total 675 ml 2250 ml 400 ml Output Total 1200 ml 30 ml Balance 675 ml 1050 ml 370 ml Results Result Diagram: 08/27/17 0759 08/27/17 0759 Results 24 hrs Laboratory Tests Test 08/27/17 07:59 White Blood Count 10.1 Red Blood Count 4.24 Hemoglobin 12.6 Hematocrit 38.3 Mean Corpuscular Volume 90.3 Mean Corpuscular Hemoglobin 29.7 Mean Corpuscular Hemoglobin Concent 32.9 Red Cell Distribution Width 12.8 Platelet Count 423 H Mean Platelet Volume 8.8 Neutrophils % 65.8 Lymphocytes % 20.9 Monocytes % 8.8 Eosinophils % 3.5 Basophils % 0.5 Nucleated Red Blood Cells % 0.0 Neutrophils # 6.7 Lymphocytes # 2.1 Monocytes # 0.9 Eosinophils # 0.4 Basophils # 0.1 Nucleated Red Blood Cells # 0.0 Sodium Level 143 Potassium Level 3.5 Chloride Level 107 Carbon Dioxide Level 24 Anion Gap 16 Blood Urea Nitrogen 9 Creatinine 0.91 Glucose Level 106 Calcium Level 9.2 Vancomycin Level Trough 12.6 Medications Medications Current Medications Morphine Sulfate (morphine) 6 mg Q4H PRN PO PAIN LEVEL 6-10; Start 08/23/17 at 17:00 Enoxaparin Sodium (Lovenox) 40 mg DAILY SC Last administered on 08/27/17 09: 11; Admin Dose 40 MG; Start 08/23/17 at 17:00 Zolpidem Tartrate 5 mg 5 mg HS PRN PO INSOMNIA; Start 08/23/17 at 17:00 Sodium Chloride (1/2 NS) 1,000 ml @ 30 mls/hr Q24H IV Last administered on 09:15; Admin Dose 75 MLS/HR; Start 08/23/17 at 17:00 Hydralazine HCl (Apresoline) 10 mg Q4H PRN IV ELEVATED BLOOD PRESSURE; Start 08/23/17 at 17:00 Acetaminophen (Tylenol Tab) 650 mg Q6H PRN PO PAIN AND OR ELEVATED TEMP Last administered on 08/25/17 23:32; Admin Dose 650 MG; Start 08/23/17 at 17:00 Acetaminophen/ Hydrocodone Bitart ([place] (5/325)) 1 tab Q6H PRN PO PAIN; Start 08/23/17 at 17:00 Ondansetron HCl 4 mg 4 mg Q6H PRN IV NAUSEA AND/OR VOMITING; Start 08/23/17 at 17:00 Piperacillin Sod/ Tazobactam Sod (Zosyn 3.375gm/ 50 ml (Pmx)) 50 ml @ 100 mls/ hr Q6 IVPB Last administered on 08/27/17 13:33; Admin Dose 100 MLS/HR; Start 08/23/17 at 18:00 Famotidine 20 mg 20 mg Q12 PO Last administered on 08/27/17 09:11; Admin Dose 20 MG; Start 08/23/17 at 21:00 Vancomycin HCl/ Sodium Chloride (Vancocin/NS) 250 ml @ 83.333 mls/ hr Q12H IVPB Last administered on 08/27/17 09:12; Admin Dose 83.333 MLS/HR; Start at 20:00 Guaifenesin/ Dextromethorphan (Robitussin Dm Liquid Cup) 10 ml Q4H PRN PO COUGH Last administered on 08/26/17 23:12; Admin Dose 10 ML; Start 08/25/17 at 21:00 AJ MANCINI NP Aug 27, 2017 14:19
[2017-08-27 15:25] VITALS: BP 135/67; RESP 18
--- NOTE | 2017-08-27 16:23 | PN ---
Date/Time of Note Date/Time of Note DATE: 08/27/17 TIME: 16:22 Assessment/Plan VTE Prophylaxis VTE Prophylaxis Intervention: SCD's Lines/Catheters IV Catheter Type (from [facility]): Peripheral IV Assessment/Plan Chief Complaint/Hosp Course Patient remains hemodynamically stable, febrile. Right axillary WIN with decreased drainage Assessment/Plan - Postoperative soft tissue infection. Continue broad spectrum antibiotics. Continue IV fluids. - Sepsis secondary to #1, postoperative soft tissue infection. Dr. Massey is following in infection disease consultation. - Status post right mastectomy on 08/16/[address] Diaz. - Protein calorie malnutrition, dietary consult. Further recommendations based on clinical course. Plan of care discussed with Dr. Kessler. Problems: Exam/Review of Systems Vital Signs Vitals Vital Signs Date Time Temp Pulse Resp B/P Pulse Ox O2 Delivery O2 Flow Rate FiO2 08/27/17 15:25 98.0 103 18 135/67 97 08/23/17 18:00 Room Air Intake and Output 08/26/17 08/26/17 08/27/17 15:00 23:00 07:00 Intake Total 675 ml 2250 ml 400 ml Output Total 1200 ml 30 ml Balance 675 ml 1050 ml 370 ml Exam Constitutional: alert Respiratory: clear to auscultation Cardiovascular: nl pulses Gastrointestinal: non-tender, soft Extremities: normal pulses ( S/p bilateral mastectomies) Results Result Diagram: 08/27/17 0759 08/27/17 0759 Results 24 hrs Laboratory Tests Test 08/27/17 07:59 White Blood Count 10.1 Red Blood Count 4.24 Hemoglobin 12.6 Hematocrit 38.3 Mean Corpuscular Volume 90.3 Mean Corpuscular Hemoglobin 29.7 Mean Corpuscular Hemoglobin Concent 32.9 Red Cell Distribution Width 12.8 Platelet Count 423 H Mean Platelet Volume 8.8 Neutrophils % 65.8 Lymphocytes % 20.9 Monocytes % 8.8 Eosinophils % 3.5 Basophils % 0.5 Nucleated Red Blood Cells % 0.0 Neutrophils # 6.7 Lymphocytes # 2.1 Monocytes # 0.9 Eosinophils # 0.4 Basophils # 0.1 Nucleated Red Blood Cells # 0.0 Sodium Level 143 Potassium Level 3.5 Chloride Level 107 Carbon Dioxide Level 24 Anion Gap 16 Blood Urea Nitrogen 9 Creatinine 0.91 Glucose Level 106 Calcium Level 9.2 Vancomycin Level Trough 12.6 Medications Medications Current Medications Morphine Sulfate (morphine) 6 mg Q4H PRN PO PAIN LEVEL 6-10; Start 08/23/17 at 17:00 Enoxaparin Sodium (Lovenox) 40 mg DAILY SC Last administered on 08/27/17 09: 11; Admin Dose 40 MG; Start 08/23/17 at 17:00 Zolpidem Tartrate 5 mg 5 mg HS PRN PO INSOMNIA; Start 08/23/17 at 17:00 Sodium Chloride (1/2 NS) 1,000 ml @ 30 mls/hr Q24H IV Last administered on 09:15; Admin Dose 75 MLS/HR; Start 08/23/17 at 17:00 Hydralazine HCl (Apresoline) 10 mg Q4H PRN IV ELEVATED BLOOD PRESSURE; Start 08/23/17 at 17:00 Acetaminophen (Tylenol Tab) 650 mg Q6H PRN PO PAIN AND OR ELEVATED TEMP Last administered on 08/25/17 23:32; Admin Dose 650 MG; Start 08/23/17 at 17:00 Acetaminophen/ Hydrocodone Bitart ([place] (5/325)) 1 tab Q6H PRN PO PAIN; Start 08/23/17 at 17:00 Ondansetron HCl 4 mg 4 mg Q6H PRN IV NAUSEA AND/OR VOMITING; Start 08/23/17 at 17:00 Piperacillin Sod/ Tazobactam Sod (Zosyn 3.375gm/ 50 ml (Pmx)) 50 ml @ 100 mls/ hr Q6 IVPB Last administered on 08/27/17 13:33; Admin Dose 100 MLS/HR; Start 08/23/17 at 18:00 Famotidine 20 mg 20 mg Q12 PO Last administered on 08/27/17 09:11; Admin Dose 20 MG; Start 08/23/17 at 21:00 Vancomycin HCl/ Sodium Chloride (Vancocin/NS) 250 ml @ 83.333 mls/ hr Q12H IVPB Last administered on 08/27/17 09:12; Admin Dose 83.333 MLS/HR; Start at 20:00 Guaifenesin/ Dextromethorphan (Robitussin Dm Liquid Cup) 10 ml Q4H PRN PO COUGH Last administered on 08/26/17 23:12; Admin Dose 10 ML; Start 08/25/17 at 21:00 JAMES FERRER Aug 27, 2017 16:23
[2017-08-27 19:47] VITALS: BP 126/81; RESP 16
--- NOTE | 2017-08-28 01:36 | PN ---
DATE: 08/27/2017 SUBJECTIVE: Feels better. OBJECTIVE: VITAL SIGNS: Temperature maximum today 99.6, another occasion temperature 98.5, heart rate 100 and also 86, respirations 18, blood pressure 126/64, saturation 95% on room air. LABORATORY DATA: WBC dropped to 10,100 with 65% segmented, which is normal differential, hemoglobin and hematocrit no rmal. Chemistry normal. MICROBIOLOGY: Blood cultures have been negative since past 3 or 4 days. The specimen we sent yesterday from the b [facility] #[facility] has showed Staph aureus preliminary test. EXAM: HEART: Regular. LUNGS: Clear. CHEST WALL: On the right side cellulitis, much improved. No tenderness. DRAINS: #1 has drained 10 mL in past 24 hours, #2 has drained 20 mL in past 24 hours. Total is 30 mL. It i s serous fluid, almost clear. ASSESSMENT AND PLAN: A 62-year-old female status post right simple mastectomy for prophylaxis of cancer. After 1 week, t he patient developed cellulitis and infection of the incision wound with high fever and leukocytosis 26,000, was admitted; vancomycin and Zosyn started. The patient has responded. The fever has been afebrile except 1 spike today. Leukocyte count dropped to normal today. Clinically, the wound is clean now with minimal erythema around the drain exit. Tenderness is almost completely resolved. PLAN: Continue antibiotic IV. Maybe tomorrow we can switch to p.o. and if it is okay with infectious dise ase, maybe we can discharge the patient on Wednesday with p.o. antibiotics. Dictated By: AUGUST ZAVALETA MD PS/SAV Conf#: [id number] DID#: [id number] CC: LARISA MARTIN MD;*EndCC*
[2017-08-28 02:12] VITALS: BP 124/59; RESP 16
[2017-08-28] MEDS: PIPER-TAZO 3.375 GM IV (PMX) 50 ML IVPB SCH (06:29)
[2017-08-28 06:32] LABS: BASOPHIL # 0.1 10^3/ul (0.0-0.1); BASOPHILS % 0.4 % (0.0-2.0); EOSINOPHILS # 0.4 10^3/ul (0.0-0.5); EOSINOPHILS % 3.2 % (0.0-7.0); HEMATOCRIT 36.6 % (37.0-47.0); HEMOGLOBIN 11.9 g/dl (12.0-16.0); LYMPHOCYTES # 2.3 10^3/ul (0.8-2.9); LYMPHOCYTES % 19.8 % (15.0-51.0); MEAN CORPUSCULAR HEMOGLOBIN 29.7 pg (29.0-33.0); MEAN CORPUSCULAR HGB CONC 32.5 g/dl (32.0-37.0); MEAN CORPUSCULAR VOLUME 91.3 fl (82.0-101.0); MEAN PLATELET VOLUME 8.9 fl (7.4-10.4); MONOCYTE # 1.2 10^3/ul (0.3-0.9); MONOCYTES % 10.1 % (0.0-11.0); NEUTROPHIL # 7.7 10^3/ul (1.6-7.5); NEUTROPHILS % 65.9 % (39.0-77.0); PLATELET COUNT 410 10^3/UL (140-415); RED BLOOD COUNT 4.01 10^6/ul (4.20-5.40); RED CELL DISTRIBUTION WIDTH 12.8 % (11.5-14.5); WHITE BLOOD COUNT 11.7 10^3/ul (4.8-10.8)
[2017-08-28 07:12] LABS: CALCIUM 8.8 mg/dl (8.4-10.2); CREATININE 0.92 mg/dl (0.44-1.00); POTASSIUM 3.7 mmol/L (3.5-5.1)
[2017-08-28 07:41] VITALS: BP 127/69; RESP 18
[2017-08-28] MEDS: VANCOMYCIN 1.25 GM in SOD CHLORIDE 0.9% 250 ML IVPB SCH (08:04)
[2017-08-28] MEDS: FAMOTIDINE 20 MG TAB PO SCH ×2 (08:05→21:05)
[2017-08-28] MEDS: ENOXAPARIN 40 MG/0.4 ML SYG SC SCH (08:06)
[2017-08-28] MEDS: SOD CHLORIDE 0.45% 1,000 ML IV SCH (11:20)
--- NOTE | 2017-08-28 13:48 | CONS ---
Date/Time of Note Date/Time of Note DATE: 08/28/17 TIME: 13:47 Assessment/Plan Assessment/Plan Chief Complaint/Hosp Course SUBJECTIVE: No acute events overnight. Patient is alert, feels good. Denies pain, discomfort. No fevers. MICROBIOLOGY: Blood cultures negative. ANTIMICROBIALS: Clindamycin PHYSICAL EXAMINATION: GENERAL: This is a well-developed, elderly woman who is alert in no distress. HEENT: Head atraumatic, normocephalic. Sclerae anicteric. Buccal mucosa pink. NECK: Supple. CHEST: Rise symmetrical. Breath sounds clear. R breast incision intact, WIN present, no drainage HEART: S1, S2. ABDOMEN: Soft. Bowel tones present. EXTREMITIES: Without cyanosis. ASSESSMENT: 1. Status post right-sided mastectomy as a prophylactic to cancer with cellulitis at the incision site==> cx + RONNA. 2. Systemic inflammatory response syndrome secondary to above. 3. History of breast cancer status post left breast mastectomy with axillary dissection 3 months ago. 4. History of laparoscopic cholecystectomy. PLAN: Patient remains stable. Ok dc on PO Clindamycin for 10 more days if cleared by surgery DW staff/pt Problems: Consultation Date/Type/Reason Admit Date/Time Aug 23, 2017 at 12:02 Type of Consultation: ID Exam/Review of Systems Vital Signs Vitals Vital Signs Date Time Temp Pulse Resp B/P Pulse Ox O2 Delivery O2 Flow Rate FiO2 08/28/17 07:41 98.5 87 18 127/69 96 Intake and Output 08/27/17 08/27/17 08/28/17 14:59 22:59 06:59 Intake Total 1140 ml 1530 ml 1800 ml Output Total 25 ml Balance 1140 ml 1505 ml 1800 ml Results Result Diagram: 08/28/17 0531 08/28/17 0531 Results 24 hrs Laboratory Tests Test 08/28/17 05:31 White Blood Count 11.7 H Red Blood Count 4.01 L Hemoglobin 11.9 L Hematocrit 36.6 L Mean Corpuscular Volume 91.3 Mean Corpuscular Hemoglobin 29.7 Mean Corpuscular Hemoglobin Concent 32.5 Red Cell Distribution Width 12.8 Platelet Count 410 Mean Platelet Volume 8.9 Neutrophils % 65.9 Lymphocytes % 19.8 Monocytes % 10.1 Eosinophils % 3.2 Basophils % 0.4 Nucleated Red Blood Cells % 0.0 Neutrophils # 7.7 H Lymphocytes # 2.3 Monocytes # 1.2 H Eosinophils # 0.4 Basophils # 0.1 Nucleated Red Blood Cells # 0.0 Sodium Level 142 Potassium Level 3.7 Chloride Level 106 Carbon Dioxide Level 26 Anion Gap 14 Blood Urea Nitrogen 9 Creatinine 0.92 Glucose Level 111 Calcium Level 8.8 Medications Medications Current Medications Morphine Sulfate (morphine) 6 mg Q4H PRN PO PAIN LEVEL 6-10; Start 08/23/17 at 17:00 Enoxaparin Sodium (Lovenox) 40 mg DAILY SC Last administered on 08/28/17 08: 06; Admin Dose 40 MG; Start 08/23/17 at 17:00 Zolpidem Tartrate 5 mg 5 mg HS PRN PO INSOMNIA; Start 08/23/17 at 17:00 Sodium Chloride (1/2 NS) 1,000 ml @ 30 mls/hr Q24H IV Last administered on 17:37; Admin Dose 30 MLS/HR; Start 08/23/17 at 17:00 Hydralazine HCl (Apresoline) 10 mg Q4H PRN IV ELEVATED BLOOD PRESSURE; Start 08/23/17 at 17:00 Acetaminophen (Tylenol Tab) 650 mg Q6H PRN PO PAIN AND OR ELEVATED TEMP Last administered on 08/25/17 23:32; Admin Dose 650 MG; Start 08/23/17 at 17:00 Acetaminophen/ Hydrocodone Bitart ([place] (5/325)) 1 tab Q6H PRN PO PAIN; Start 08/23/17 at 17:00 Ondansetron HCl (Zofran Inj) 4 mg Q6H PRN IV NAUSEA AND/OR VOMITING; Start 07/30 at 17:00 Famotidine (Pepcid) 20 mg Q12 PO Last administered on 08/28/17 08:05; Admin Dose 20 MG; Start 08/23/17 at 21:00 Guaifenesin/ Dextromethorphan 10 ml 10 ml Q4H PRN PO COUGH Last administered on 08/26/17 23:12; Admin Dose 10 ML; Start 08/25/17 at 21:00 Clindamycin HCl/ Dextrose (Cleocin 600 Mg/ D5W (Pmx)) 50 ml @ 50 mls/hr Q8 IVPB ; Start 08/28/17 at 14:00 AJ MANCINI NP Aug 28, 2017 13:48
[2017-08-28] MEDS ORDERED: CLINDAMYCIN 600 MG/D5W (PMX) 50 ML IVPB SCH (14:00)
[2017-08-28 14:09] VITALS: BP 142/72; RESP 18
--- NOTE | 2017-08-28 17:13 | PN ---
Date/Time of Note Date/Time of Note DATE: 08/28/17 TIME: 17:11 Assessment/Plan Lines/Catheters IV Catheter Type (from [facility]): Peripheral IV Assessment/Plan Assessment/Plan - Postoperative soft tissue infection. Continue broad spectrum antibiotics. Continue IV fluids. - Sepsis secondary to #1, postoperative soft tissue infection. Dr. Massey is following in infection disease consultation. - Status post right mastectomy on 08/16/[address] Diaz. - Protein calorie malnutrition, dietary consult. DC plan tomorrow if cleared by surgery. Jorden ID Nancy- samantha to d patient on po Clindamycin 300 mg po qid x 10 days. Further recommendations based on clinical course. Plan of care discussed with Dr. Kessler. Exam/Review of Systems Vital Signs Vitals Vital Signs Date Time Temp Pulse Resp B/P Pulse Ox O2 Delivery O2 Flow Rate FiO2 08/28/17 14:09 98.2 96 18 142/72 96 Intake and Output 08/27/17 08/27/17 08/28/17 15:00 23:00 07:00 Intake Total 1140 ml 1530 ml 1800 ml Output Total 25 ml Balance 1140 ml 1505 ml 1800 ml Results Result Diagram: 08/28/17 0531 08/28/17 0531 Results 24 hrs Laboratory Tests Test 08/28/17 05:31 White Blood Count 11.7 H Red Blood Count 4.01 L Hemoglobin 11.9 L Hematocrit 36.6 L Mean Corpuscular Volume 91.3 Mean Corpuscular Hemoglobin 29.7 Mean Corpuscular Hemoglobin Concent 32.5 Red Cell Distribution Width 12.8 Platelet Count 410 Mean Platelet Volume 8.9 Neutrophils % 65.9 Lymphocytes % 19.8 Monocytes % 10.1 Eosinophils % 3.2 Basophils % 0.4 Nucleated Red Blood Cells % 0.0 Neutrophils # 7.7 H Lymphocytes # 2.3 Monocytes # 1.2 H Eosinophils # 0.4 Basophils # 0.1 Nucleated Red Blood Cells # 0.0 Sodium Level 142 Potassium Level 3.7 Chloride Level 106 Carbon Dioxide Level 26 Anion Gap 14 Blood Urea Nitrogen 9 Creatinine 0.92 Glucose Level 111 Calcium Level 8.8 Medications Medications Current Medications Morphine Sulfate (morphine) 6 mg Q4H PRN PO PAIN LEVEL 6-10; Start 08/23/17 at 17:00 Enoxaparin Sodium (Lovenox) 40 mg DAILY SC Last administered on 08/28/17 08: 06; Admin Dose 40 MG; Start 08/23/17 at 17:00 Zolpidem Tartrate 5 mg 5 mg HS PRN PO INSOMNIA; Start 08/23/17 at 17:00 Sodium Chloride (1/2 NS) 1,000 ml @ 30 mls/hr Q24H IV Last administered on 17:37; Admin Dose 30 MLS/HR; Start 08/23/17 at 17:00 Hydralazine HCl (Apresoline) 10 mg Q4H PRN IV ELEVATED BLOOD PRESSURE; Start 08/23/17 at 17:00 Acetaminophen (Tylenol Tab) 650 mg Q6H PRN PO PAIN AND OR ELEVATED TEMP Last administered on 08/25/17 23:32; Admin Dose 650 MG; Start 08/23/17 at 17:00 Acetaminophen/ Hydrocodone Bitart ([place] (5/325)) 1 tab Q6H PRN PO PAIN; Start 08/23/17 at 17:00 Ondansetron HCl (Zofran Inj) 4 mg Q6H PRN IV NAUSEA AND/OR VOMITING; Start 07/30 at 17:00 Famotidine (Pepcid) 20 mg Q12 PO Last administered on 08/28/17 08:05; Admin Dose 20 MG; Start 08/23/17 at 21:00 Guaifenesin/ Dextromethorphan 10 ml 10 ml Q4H PRN PO COUGH Last administered on 08/26/17 23:12; Admin Dose 10 ML; Start 08/25/17 at 21:00 Clindamycin HCl/ Dextrose (Cleocin 600 Mg/ D5W (Pmx)) 50 ml @ 50 mls/hr Q8 IVPB Last administered on 08/28/17 14:38; Admin Dose 50 MLS/HR; Start 08/28/17 at 14:00 SHAWN LEARY Aug 28, 2017 17:13
[2017-08-28 19:26] VITALS: BP 130/67; RESP 16
[2017-08-29] MEDS: CLINDAMYCIN 300 MG CAP PO SCH ×3 (00:20→12:26)
[2017-08-29 02:30] VITALS: BP 126/62; RESP 14
--- NOTE | 2017-08-29 06:28 | PN ---
DATE: 08/28/2017 SUBJECTIVE: The patient is status post cellulitis of the right breast incision site and sepsis, admitted about a week ago, started on IV antibiotics. Feels better, does not have any specific complaint. OBJECTIVE: VITAL SIGNS: Temperature 98.7, maximum today, heart rate 86, respirations 16, blood pressure 127/69, saturation 96% on room air. LABORATORY DATA: WBC has increased from 10,100 to 11,700 today, but differential is 65% neutrophils. A slight shift to the left. Hemoglobin and hematocrit are stable. Chemistry: Normal BUN and creatinine, sodium and potassium. PHYSICAL EXAMINATION: HEART: Regular. LUNGS: Clear. Anesthesia line almost clear. Slight redness this exists around the drain. The drains have been draining a slight amount in the past 48 hours. Last night, in 24 hours: 1. 5 mL. 2. 10 mL. The other day: 1. 10 mL. 2. 15 mL. Therefore, it is time to remove them. ASSESSMENT: A 62-year-old female status post sepsis due to infection of the postop incision wound on the right breast area. Patient has been on IV antibiotics with vancomycin and Zosyn. The culture has grown Staphylococcus aureus. The patient responded nicely. A small area of cellulitis still exists. Two Alejandro-Suazo drains, which are draining 5 and 10 mL respectively in past 24 hours, were removed. PLAN: Continue IV antibiotics until tomorrow. Tomorrow, we are going to discharge the patient. Infectious disease has been fine with clindamycin, so the patient is going to be discharged on clindamycin p.o. for 10 more days after discharge. The patient to call Dr. Morelos' office on Wednesday and make an appointment for followup. Dictated By: AUGUST ZAVALETA MD PS/NTS Conf#: [id number] DID#: [id number] CC: THOMAS MORELOS MD;*EndCC* MTDD
[2017-08-29 07:32] VITALS: BP 130/70; RESP 18
[2017-08-29] MEDS: FAMOTIDINE 20 MG TAB PO SCH (08:03)
[2017-08-29] MEDS: ENOXAPARIN 40 MG/0.4 ML SYG SC SCH (08:04)
--- NOTE | 2017-08-29 14:05 | PDOCDIS ---
Discharge Instructions CONDITION Patient Condition: Stable HOME CARE INSTRUCTIONS: Special Diet: regular ACTIVITY: Activity Restrictions: Slowly Increase Activity Rest between Activity Avoid heavy lifting Do not Drive Do not operate Machinery Do not operate Power Tool Avoid Heavy Housework Bathing Restrictions: Sponge Bath FOLLOW UP/APPOINTMENTS Follow-up Plan Follow up with Primary MD X 1 WEEK FU with ID as recommended Call 911 or go to the nearest hospital if symptoms get worse Patient verbalized understanding DC instrctions. Jorden Kessler/staff SHAWN LEARY Aug 29, 2017 14:05
[2017-08-29] MEDS ORDERED: CLIN-73 PO (14:12)
--- NOTE | 2017-08-29 14:17 | DS ---
Date/Time of Note Date/Time of Note DATE: 08/29/17 TIME: 14:16 Discharge Summary Admission/Discharge Info Admit Date/Time Aug 23, 2017 at 12:02 Discharge Date/Time Patient Condition: Stable Home Meds Active Scripts Clindamycin Hcl* (Clindamycin Hcl*) 300 Mg Capsule, 300 MG PO Q6 for 10 Days, CAP Prov:SHAWN LEARY 08/29/17 Acetaminophen* (Tylophen*) 500 Mg Capsule, 500 MG PO Q6H Y for PAIN, #30 TAB Prov:JAMES FERRER 08/17/17 Follow-up Plan Follow up with Primary MD X 1 WEEK FU with ID as recommended Call 911 or go to the nearest hospital if symptoms get worse Patient verbalized understanding DC instrctions. Dw Dr Kessler/staff Primary Care Provider [facility] SHAWN LEARY Aug 29, 2017 14:17
--- NOTE | 2017-08-29 16:16 | CONS ---
Date/Time of Note Date/Time of Note DATE: 08/29/17 TIME: 16:16 Consultation Date/Type/Reason Admit Date/Time Aug 23, 2017 at 12:02 Initial Consult Date SUBJECTIVE: No acute events overnight. Patient is alert, feels good. Denies pain, discomfort. No fevers. MICROBIOLOGY: Blood cultures negative. ANTIMICROBIALS: Clindamycin PHYSICAL EXAMINATION: GENERAL: This is a well-developed, elderly woman who is alert in no distress. HEENT: Head atraumatic, normocephalic. Sclerae anicteric. Buccal mucosa pink. NECK: Supple. CHEST: Rise symmetrical. Breath sounds clear. R breast incision intact, WIN present, no drainage HEART: S1, S2. ABDOMEN: Soft. Bowel tones present. EXTREMITIES: Without cyanosis. ASSESSMENT: 1. Status post right-sided mastectomy as a prophylactic to cancer with cellulitis at the incision site==> cx + RONNA. 2. Systemic inflammatory response syndrome secondary to above. 3. History of breast cancer status post left breast mastectomy with axillary dissection 3 months ago. 4. History of laparoscopic cholecystectomy. PLAN: Patient remains stable. Ok dc on PO Clindamycin for 10 more days. D/C planning today. Type of Consultation: ID Exam/Review of Systems Vital Signs Vitals Vital Signs Date Time Temp Pulse Resp B/P Pulse Ox O2 Delivery O2 Flow Rate FiO2 08/29/17 07:32 98.3 99 18 130/70 96 Intake and Output 08/28/17 08/28/17 08/29/17 15:00 23:00 07:00 Intake Total 300 ml 3910 ml 920 ml Output Total 15 ml 3 ml Balance 285 ml 3910 ml 917 ml Results Result Diagram: 08/28/17 0531 08/28/17 0531 QASIM BARRIGA Aug 29, 2017 16:16
== END 2017-08-29 14:30 | disposition home or self-care (01) | DRG 862 ==
LOC: E/R 09:08 → MS2 12:02
PROVIDERS: ADMIT Internal Medicine; ATTEND Internal Medicine
DX: T81.4XXA Infection following a procedure, initial encounter (principal); A41.9 Sepsis, unspecified organism; E46 Unspecified protein-calorie malnutrition; L03.313 Cellulitis of chest wall; B95.61 Methicillin susceptible Staphylococcus aureus infection as the cause of diseases classified elsewhere; Z68.30 Body mass index [BMI] 30.0-30.9, adult; Z85.3 Personal history of malignant neoplasm of breast; Z92.21 Personal history of antineoplastic chemotherapy; Z92.3 Personal history of irradiation
CPT/HCPCS: 36415; 71010; 80048; 80053; 80202; 83605; 84484; 85025; 85610; 85730; 87040; 87070; 87075; 93005; 96374; 96375; 96376; J0692; J1170; J1650; J2405; J2543; J3370; J7030; J7050